=== PATIENT | female | born 1955 | race Caucasian/White ===

== ENCOUNTER → 2021-06-17 10:52 | Outpatient (BNVA) | payer MEDICARE, MEDICAID, SELFPAY | PROVIDERS: PCP Internal Medicine; Visit Provider Hospitalist | DX: Z13.89 Encounter for screening for other disorder (principal) | CPT/HCPCS: Q3014 ==

== ENCOUNTER 2023-01-24 08:57 | Emergency (ER) | payer MEDICARE, MEDICAID, SELFPAY ==
--- NOTE | ~2023-01-24 | XR_ITS ---
EXAMINATION: XR CHEST CLINICAL INFORMATION: Shortness of breath COMPARISON: Previous chest x-ray most recent July 2017 TECHNIQUE: Frontal view of the chest was obtained. FINDINGS: The cardiac and mediastinal contours are stable. There is question of atelectasis or small infiltrate at the right lung base. The lungs are otherwise clear. No pleural effusion or pneumothorax. Degenerative changes of the spine. XR/XR chest 1V IMPRESSION: Question atelectasis or small infiltrate at the right lung base.
[2023-01-24 09:05] VITALS: BP 179/80; PULSE 60; RESP 18; TEMP 36.7; O2SAT 93; BMI 26.6
[2023-01-24 09:07] VITALS: O2SAT 93
--- NOTE | 2023-01-24 09:10 | ECG_ITS ---
Test Reason : sob Blood Pressure : / mmHG Vent. Rate : 072 BPM Atrial Rate : 072 BPM P-R Int : 156 ms QRS Dur : 084 ms QT Int : 430 ms P-R-T Axes : 050 013 050 degrees QTc Int : 470 ms Sinus rhythm with occasional Premature ventricular complexes Minimal voltage criteria for LVH, may be normal variant ( Sokolow-Cifuentes ) Borderline ECG When compared with ECG of 04-AUG-2017 11:09, Premature ventricular complexes are now Present Vent. rate has decreased BY 38 BPM Referred By: Patricia Elder Electronically Signed By:ADRIAN SPICER
[2023-01-24 09:36] LABS: MANUAL DIFF FLAG NO
[2023-01-24 09:39] LABS: Appearance Urine Clear; Color Urine Yellow; Glucose Urine UA Negative (Negative); Leukocyte Esterase Urine Negative (Negative); Nitrite Urine Negative (Negative); Specific Gravity - Urine 1.015 (1.005-1.025); Urine Blood Negative (Negative); Urine Ketones Negative (Negative); Urine Protein Trace mg/dL (Neg-Trace)
[2023-01-24 09:42] LABS: Basophils Absolute Auto 0.1 X10*3/uL (0.0-0.2); Basophils Percent Auto 0.8 % (0-2); Eosinophils Absolute Auto 0.4 X10*3/uL (0.0-0.4); Eosinophils Percent Auto 3.7 % (0-4); Hematocrit 42.3 % (37.0-47.0); Hemoglobin 13.4 g/dl (12.0-16.0); Imm Gran Abs Auto 0.02 X10*3/uL (0.00-0.03); Imm Gran Pct Auto 0.2 % (0.0-0.4); Lymphocytes Percent Auto 9.8 % (20-40); Mean Corpuscular HGB Conc 31.7 g/dl (31.0-35.0); Mean Corpuscular Hemoglobin 29.5 pg (27.0-33.0); Mean Platelet Volume 11.2 fL (9.4-12.3); Monocytes Absolute Auto 0.5 X10*3/uL (0.1-1.2); Monocytes Percent Auto 4.6 % (2-11); Neutrophils Absolute Auto 8.4 x10*3/uL (2.0-8.3); Neutrophils Percent Auto 80.9 % (45-73); Platelet Count 316 X10*3/uL (160-400); Red Blood Count 4.55 X10*6/uL (4.20-5.50); Red Cell Distribution Width 13.5 % (11.0-16.0); White Blood Count 10.3 X10*3/uL (4.8-10.8)
--- NOTE | 2023-01-24 09:45 | ED.URI ---
HPI - URI/Sore Throat General Chief Complaint: Upper Respiratory Symptoms Stated Complaint: diff breathing x 2 days, per ems Source: patient Mode of arrival: EMS Limitations: no limitations History of Present Illness HPI Narrative: Patient is a 67 year old female with a history of COPD presenting with trouble breathing lasting a few days. She states that she has been using 2L of oxygen as needed and it has been giving her some relief. She notes that she will have a COPD exacerbation once a year and this episode feels similar to the past. She notes that she is coughing up small amounts of clear sputum. Denies sick contacts. Denies fever, chills, chest pain, nausea, vomiting, changes in bowel/bladder habits. Related Data Home Medications Medication Instructions Recorded Confirmed flu vacc [id number] 6mos up(PF) 60 ml IM 05/01/20 01/23/22 mcg(15 mcgx4)/0.5 mL IM syringe Previous Rx's Medication Instructions Recorded Ventolin HFA 90 mcg/actuation 2 puff PO Q6H PRN shortness of 12/17/20 aerosol inhaler (albuterol sulfate) breath or wheezing #18 grams fluticasone fur. 200 mcg-umeclid See Rx Instructions .Route 07/07/22 62.5 mcg-vilant 25 mcg .COMPLEX #60 ea inhalat.powder (Trelegy Ellipta) roflumilast 500 mcg tablet 500 mcg PO DAILY #90 tabs 09/21/22 (Daliresp) lorazepam 1 mg tablet 1 mg PO BID #60 tabs 10/13/22 Allergies Allergy/AdvReac Type Severity Reaction Status Date / Time Unable to Assess Allergy Unverified 01/24/23 08:54 Review of Systems Review of Systems: Constitutional : No Weight loss, No Fever, No Chills, No Fatigue, No Malaise ENT/Mouth : No sore throat, No Rhinorrhea Eyes: No Eye Pain, No Swelling, No Redness Cardiovascular : No Chest Pain, + SOB, + Dyspnea on Exertion, No Orthopnea, No Edema, No Palpitations Respiratory : + Cough, + Sputum, No Wheezing Gastrointestinal : No Nausea, No Vomiting, No Diarrhea, No Constipation, No abdominal Pain, No Hematochezia, No Melena Genitourinary : No Dysuria, No Urinary Frequency, No Hematuria, Musculoskeletal : No joint pain, No Myalgias, No Joint Swelling Skin : No Skin Lesions, No rash Neuro : No Weakness, No Numbness, No Dizziness, No Headache Psych : No Anxiety/Panic, No Depression All other systems reviewed and are negative Yes all other systems are reviewed and are negative [facility] Past Medical History Attestation statement: The following information was validated with the patient. Source: old records reviewed and nursing notes reviewed Medical History Chronic cough COPD exacerbation Dyspnea Tobacco dependence URI (upper respiratory infection) Surgical History History of knee surgery Family History Family History Other HTN (hypertension) Social History Social History Alcohol intake: never Patient Tobacco Use Status: Current everyday Tobacco user Tobacco use type: Cigarette Cigarettes Per Day: 10 Years Smoked: 30 years e-Cigarette/Vaping Use: Never Used Advance Directives: No Advance Directives Information Provided: Yes Cognitive needs: No Hearing needs: No Vision needs: Yes Physical Exam Vital Signs: Vital Signs: Last Vital Signs Temp 98.1 F 01/24/23 09:05 Pulse 72 01/24/23 10:12 Resp 16 01/24/23 10:12 BP 163/68 H 01/24/23 10:09 Pulse Ox 90 L 01/24/23 10:09 O2 Del Method Room Air 01/24/23 10:09 BMI result Body Mass Index 26.6 vss Appearance: Alert.? Oriented X3.? No acute distress.? Head: Normocephalic, atraumatic, no step-offs or deformities Eyes: Pupils equal, round and reactive to light.? ENT: Pharynx normal.? Neck: Normal inspection.? Neck supple.? CVS: Normal heart rate and rhythm.? Pulses normal.? Respiratory: No respiratory distress.? Breath sounds diminished breathsounds b/l w/ crackles to lower lobes .? Abdomen: Soft and nontender.? Skin: Skin warm and dry.? Normal skin color.? Normal skin turgor.? Extremities: No lower extremity edema.? No calf ttp. 5/5 strength to bilateral upper and lower extremities Neuro: Oriented X 3.? No motor deficit.? No sensory deficit. CN 2-12 intact Course Reevaluation(s) Reevaluation #1: CBC appears to be around patient's baseline. No acute findings. Chemistry with no acute electrolyte abnormalities requiring intervention, BNP is noted to be higher than patient's baseline 256, x-ray pending, will see if x-ray is consistent with CHF. No CP unlikely ACS, unlikely PE. More likely bronchitis or URI or chronic lung disease. Time: 10:05 Reevaluation #2: Chest xray w/ atelectasis or small infiltrate at the right lung base. No signs of chf. patient 92-94% on RA and has PRN O2 at home. History and physical exam with low suspicion for PE I do not suspect PE. Patient will be discharged home with antibiotics, steroids and inhaler Educated patient on diagnosis and treatment plan, answered all question, patient verbalizes understanding. At this time patient will be discharged home, advised to return with new or worsening symptoms. Educated on worrisome signs and symptoms and when to return. At this time I feel comfortable discharge home. Time: 13:43 Reevaluation #3: To note, I did have this patient evaluated by the hospitalist, hospitalist do not feels though patient warrants inpatient admission. Patient feels comfortable going home. She does have p.r.n. oxygen at home. Will discharge her home with steroids. Medications Administered Generic Name Dose Route Start Last Admin Trade Name Freq PRN Reason Stop Dose Admin Magnesium Sulfate 2 gm in 50 mls @ 25 mls/hr 01/24/23 12:56 01/24/23 13:38 Magnesium Sulfate/H2o IV 01/24/23 14:55 25 mls/hr ONCE ONE Administration Discontinued Medications Generic Name Dose Route Start Last Admin Trade Name Freq PRN Reason Stop Dose Admin Albuterol Sulfate 5 mg 01/24/23 09:52 01/24/23 10:11 Albuterol Sulfate (0.083%) 2.5 Mg/3 Ml Vial.Neb INHALE 01/24/23 09:53 5 mg ONCE ONE Administration Albuterol Sulfate 5 mg 01/24/23 12:56 01/24/23 13:13 Albuterol Sulfate 2.5 Mg/0.5 Ml Vial.Neb INHALE 01/24/23 12:57 5 mg ONCE ONE Administration Lorazepam 0.5 mg 01/24/23 12:56 01/24/23 13:38 Lorazepam 2 Mg/Ml Vial IVPUSH 01/24/23 12:57 0.5 mg ONCE ONE Administration Methylprednisolone Sodium Succinate 125 mg 01/24/23 12:56 01/24/23 13:38 Methylprednisolone Sod Succ 125 Mg/2 Ml Vial IVPUSH 01/24/23 12:57 125 mg ONCE ONE Administration Medical Decision Making Medical Decision Making [facility] Narrative: 0946 67 year old female presents w/ cough w/ clear sputum and SOB X 2 days PE w/ diminished breathsounds b/l w/ crackles to lower lobes Concerns for chronic lung disease versus acute respiratory infection versus COVID-19. Unlikely PE, pneumonia, ACS. Less likely CHF however will rule out No signs of acute respiratory distress. Plan labs, imaging Differential Diagnosis Differential Diagnoses: The differential diagnosis associated with the presentation includes Concerns for chronic lung disease versus acute respiratory infection versus COVID-19. Unlikely PE, pneumonia, ACS. Less likely CHF however will rule out No signs of acute respiratory distress. Admission/Observation Consideration of admission/observation: Escalation of care including admission/observation considered possible Lab Data [facility] Lab Attestation statement: I reviewed the patient's lab results. 01/24/23 09:29 01/24/23 09:29 Labs: Lab Results 01/24/23 01/24/23 01/24/23 Range/Units 09:29 09:29 09:29 WBC 10.3 (4.8-10.8) X10*3/uL RBC 4.55 (4.20-5.50) X10*6/uL Hgb 13.4 (12.0-16.0) g/dl Hct 42.3 (37.0-47.0) % MCV 93.0 (80.0-98.0) fL MCH 29.5 (27.0-33.0) pg MCHC 31.7 (31.0-35.0) g/dl RDW 13.5 (11.0-16.0) % Plt Count 316 (160-400) X10*3/uL MPV 11.2 (9.4-12.3) fL Immature Gran % (Auto) 0.2 (0.0-0.4) % Neut % (Auto) 80.9 H (45-73) % Lymph % (Auto) 9.8 L (20-40) % Sargent % (Auto) 4.6 (2-11) % Eos % (Auto) 3.7 (0-4) % Baso % (Auto) 0.8 (0-2) % Lymph # (Auto) 1.0 L (1.2-4.9) X10*3/uL Sargent # (Auto) 0.5 (0.1-1.2) X10*3/uL Eos # (Auto) 0.4 (0.0-0.4) X10*3/uL Baso # (Auto) 0.1 (0.0-0.2) X10*3/uL Abs Immat Gran (auto) 0.02 (0.00-0.03) X10*3/uL Absolute Neuts (auto) 8.4 H (2.0-8.3) x10*3/uL Absolute Nucleated RBC 0.000 (0.0-0.012) X10*3/uL Nucleated RBC % (auto) 0.0 (0.0-0.2) /100WBC Sodium 140 (135-145) mmol/L Potassium 3.9 (3.3-5.1) mmol/L Chloride 102 (96-108) mmol/L Carbon Dioxide 28 (22-29) mmol/L Anion Gap 14 (12-20) BUN 17 H (9-16) mg/dL Creatinine 0.87 (0.5-1.4) mg/dL Estim Creat Clear Calc 58.8 Estimated GFR > 60 Random Glucose 105 (60-115) mg/dL Calcium 10.0 (8.4-10.2) mg/dL Magnesium 2.0 (1.6-2.6) mg/dL Total Bilirubin 0.6 (0.0-1.0) mg/dL AST 15 (5-31) U/L ALT 10 (0-31) U/L Alkaline Phosphatase 77 (39-117) U/L Troponin I High Sens 2.9 (<3.5-17.0) ng/L B-Natriuretic Peptide (<100) pg/mL Total Protein 7.6 (6.5-8.0) g/dL Albumin 4.1 (3.5-5.0) g/dL Urine Color Urine Appearance Urine pH (5.0-9.0) Ur Specific [place] (1.005-1.025) Urine Protein (Neg-Trace) mg/dL Urine Glucose (UA) (Negative) mg/dL Urine Ketones (Negative) mg/dL Urine Blood (Negative) Urine Nitrite (Negative) Ur Leukocyte Esterase (Negative) COVID-19 (CARLOS) (Negative) COVID-19 Clin Com 01/24/23 01/24/23 01/24/23 Range/Units 09:29 09:29 09:29 WBC (4.8-10.8) X10*3/uL RBC (4.20-5.50) X10*6/uL Hgb (12.0-16.0) g/dl Hct (37.0-47.0) % MCV (80.0-98.0) fL MCH (27.0-33.0) pg MCHC (31.0-35.0) g/dl RDW (11.0-16.0) % Plt Count (160-400) X10*3/uL MPV (9.4-12.3) fL Immature Gran % (Auto) (0.0-0.4) % Neut % (Auto) (45-73) % Lymph % (Auto) (20-40) % Sargent % (Auto) (2-11) % Eos % (Auto) (0-4) % Baso % (Auto) (0-2) % Lymph # (Auto) (1.2-4.9) X10*3/uL Sargent # (Auto) (0.1-1.2) X10*3/uL Eos # (Auto) (0.0-0.4) X10*3/uL Baso # (Auto) (0.0-0.2) X10*3/uL Abs Immat Gran (auto) (0.00-0.03) X10*3/uL Absolute Neuts (auto) (2.0-8.3) x10*3/uL Absolute Nucleated RBC (0.0-0.012) X10*3/uL Nucleated RBC % (auto) (0.0-0.2) /100WBC Sodium (135-145) mmol/L Potassium (3.3-5.1) mmol/L Chloride (96-108) mmol/L Carbon Dioxide (22-29) mmol/L Anion Gap (12-20) BUN (9-16) mg/dL Creatinine (0.5-1.4) mg/dL Estim Creat Clear Calc Estimated GFR Random Glucose (60-115) mg/dL Calcium (8.4-10.2) mg/dL Magnesium (1.6-2.6) mg/dL Total Bilirubin (0.0-1.0) mg/dL AST (5-31) U/L ALT (0-31) U/L Alkaline Phosphatase (39-117) U/L Troponin I High Sens (<3.5-17.0) ng/L B-Natriuretic Peptide 256 H (<100) pg/mL Total Protein (6.5-8.0) g/dL Albumin (3.5-5.0) g/dL Urine Color Yellow Urine Appearance Clear Urine pH 8.0 (5.0-9.0) Ur Specific [place] 1.015 (1.005-1.025) Urine Protein Trace (Neg-Trace) mg/dL Urine Glucose (UA) Negative (Negative) mg/dL Urine Ketones Negative (Negative) mg/dL Urine Blood Negative (Negative) Urine Nitrite Negative (Negative) Ur Leukocyte Esterase Negative (Negative) COVID-19 (CARLOS) Negative (Negative) COVID-19 Clin Com See Note Independent Interpretation I performed an independent interpretation of an: EKG and Plain X-Ray Radiology Impression Discussion of test interpretation with radiology: I have reviewed the radiologist's reading. Critical Care Time Critical Care Time Critical Care Time: No Discharge Plan Discharge Clinical Impression: COPD exacerbation, Elevated brain natriuretic peptide (BNP) level Patient Disposition: Home, Self-Care Instructions: COPD (Chronic Obstructive Pulmonary Disease) (DC) Additional Instructions: Take your medications as prescribed. If you were prescribed antibiotics today, it is important that you take your medication to their entirety, do not skip any doses, do not finish them early. Follow-up with your primary care provider this week. Return to the emergency department with new or worsening symptoms. Such as fevers, chills, chest pain, shortness of breath, nausea, vomiting, dizziness, headache, vision changes, lethargy In case of emergency call 911 Follow up with your PCP It would be a good idea to get a repeat BNP, and out patient echo if possible. XR/XR chest 1V IMPRESSION: Question atelectasis or small infiltrate at the right lung base. Prescriptions: No Action albuterol sulfate [Ventolin HFA] 90 mcg/actuation HFA aerosol inhaler 2 puff PO Q6H PRN (Reason: shortness of breath or wheezing) Qty: 18 11RF Trelegy Ellipta 200-62.5-25 mcg blister with device See Rx Instructions .ROUTE .COMPLEX Qty: 60 12RF Dose Instruction: INHALE 1 PUFF BY MOUTH EVERY DAY Rx Instructions: INHALE 1 PUFF BY MOUTH EVERY DAY Daliresp 500 mcg tablet 500 mcg PO DAILY Qty: 90 3RF lorazepam 1 mg tablet 1 mg PO BID Qty: 60 5RF Fluzone Quad [id number] (PF) 60 mcg (15 mcg x 4)/0.5 mL syringe IM Referrals: Tony Correa MD [Primary Care Provider] - 2 days Stand Alone Forms: Work/School Release
--- OUTSIDE RECORDS SUMMARY | 2023-01-24 09:46 | XMS_ITS | Continuity of Care Document ---
Author Name Unknown Organization [facility] ter Address [address] [place] [id number]- Care Team Providers Care Therapeutic Specialist Name Role Phone Feliz GROSSMAN, Abhilash Primary Care Physician [phone] Encounter [facility] [place] Date(s): 05/23/19 - 08/31/[address] [address]- [place] Attending Physician: Carlos Buckner MD Referring Physician: Carlos Buckner MD Allergies, Adverse Reactions, Alerts Substance Reaction Severity Status NKA Active Medications air chamber air chamber, with albuterol, By Mouth, Every 6 hours, PRN sob /wheeze, # 1 applicator, Refills 0, Tot. Refills 0, Maintenance, 03/09/11 14:29:04 Start Date: 03/09/11 Status: Ordered Ativan 0.5 mg oral tablet See Instructions, 2mg twice daily, 0 Refills, Maintenance, 12/04/10 12:04:53, Tablet Start Date: 12/04/10 Status: Ordered Celexa 20 mg oral tablet 1 tablet, By Mouth, Daily, # 30 tablet, 0 Refills, Maintenance, Tablet Start Date: 12/04/10 Status: Ordered Combivent 103 mcg-18 mcg/inh inhalation aerosol with adapter 2 puffs, Inhalation, 4 times a day, # 14 Gm, 0 Refills, Maintenance, Aerosol Start Date: 03/09/11 Stop Date: 03/23/11 Status: Ordered famotidine 20 mg oral tablet 1 tablet = 20 mg, By Mouth, 2 times a day, # 28 tablet, 0 Refills, Maintenance, Tablet Start Date: 03/09/11 Stop Date: 03/23/11 Status: Ordered Flovent HFA 220 mcg/inh inhalation aerosol with adapter 1 puffs, Inhalation, 2 times a day, # 12 Gm, 0 Refills, Maintenance, Aerosol Start Date: 03/09/11 Stop Date: 03/23/11 Status: Ordered hydrochlorothiazide 12.5 mg oral capsule 1 capsule = 12.5 mg, By Mouth, Daily, # 30 capsule, 3 Refills, Maintenance, Capsule Start Date: 01/29/11 Status: Ordered lisinopril 40 mg oral tablet 1 tablet = 40 mg, By Mouth, Daily, # 30 tablet, 3 Refills, Maintenance Start Date: 01/29/11 Status: Ordered Social History Social History Type Response Smoking Status Current every day navdeep hamlin entered on: 04/15/15 Sex
--- OUTSIDE RECORDS SUMMARY | 2023-01-24 09:46 | XMS_ITS | Continuity of Care Document ---
Author Name Unknown Organization [facility] ter Address [address] [place] [address]- Care Team Providers Care Tire Mold Tester Name Role Phone Feliz GROSSMAN, Abhilash Primary Care Physician Encounter [facility] [place] Date(s): 06/27/19 - 09/07/[address] [address]- [place] Attending Physician: Carlos Buckner MD Admitting Physician: Carlos Buckner MD Referring Physician: Carlos [...]
--- OUTSIDE RECORDS SUMMARY | 2023-01-24 09:46 | XMS_ITS | Continuity of Care Document ---
Author Name Unknown Organization [facility] ter Address [address] [place] [id number]- Care Team Providers Care Rn Sane Name Role Phone Not on Staff, PCP Primary Care Physician Unavail able [place] [facility] [place] - 01/20/[address] [address]- Discharge Disposition: A-D/C AMA Attending Physician: Socrates Osman MD Admitting Physician: Socrates Osman MD Referring Physician: Not on Staff, Referring MD Allergies, Adverse Reactions, Alerts No Known Allergies Medications air chamber air chamber, with albuterol, [...] day navdeep hamlin entered on: 04/15/15 Sex Patient Care team information Care Team Personnel Name: Not on Staff, PCP Position: [facility] Physician (General Medicine) Member Role: PCP Name: Eliza Darnell RN Position: [facility] ED RN W/OE and Tasks Member Role: Patient Care Provider Name: Sarah Evans MD Position: [facility] Resident Member Role: ED Resident Address: Address: [address] [place] [address] [place] [address]- Care Team Related Persons Name: JLUIS VALVERDE Address: home [address] [place] [address] Name: TOMAS VALVERDE
--- OUTSIDE RECORDS SUMMARY | 2023-01-24 09:46 | XMS_ITS | Continuity of Care Document ---
Author Name Unknown Organization [facility] ter Address [address] [place] [id number]- Care Team Providers Care Associate Director Career Services Name Role Phone Feliz GROSSMAN, Abhilash Primary Care Physician [phone] Encounter [facility] [place] Date(s): 06/22/19 - 07/28/[address] [address]- [place] Attending Physician: Carlos Buckner MD Admitting [...]
--- OUTSIDE RECORDS SUMMARY | 2023-01-24 09:46 | XMS_ITS | Continuity of Care Document ---
Author Name Unknown Organization [facility] ter Address [address] [place] [address]- Care Team Providers Care Property Developer Name Role Phone Feliz GROSSMAN, Abhilash Primary Care Physician [phone] Encounter [facility] [place] Date(s): 06/21/19 - 07/27/[address] [address]- [place] Attending Physician: Omaira Chaves MD Admitting Physician: Omaira Chaves MD Referring Physician: Carlos Buckner MD Allergies, [...]
[2023-01-24 09:48] LABS: COVID-19 Test Negative (Negative); IDNOW Serial# 08D9AD1C
[2023-01-24 09:53] LABS: Alanine Aminotransferase 10 U/L (0-31); Albumin Level 4.1 g/dL (3.5-5.0); Alkaline Phosphatase 77 U/L (39-117); Anion Gap 14 (12-20); Aspartate Amino Transferase 15 U/L (5-31); Bilirubin Total 0.6 mg/dL (0.0-1.0); Blood Urea Nitrogen 17 mg/dL (9-16); Carbon Dioxide 28 mmol/L (22-29); Chloride 102 mmol/L (96-108); Creatinine Clr Calc Pharmacy 58.8; Estimated Glomerular Filt Rate > 60; Glucose Random 105 mg/dL (60-115); Potassium 3.9 mmol/L (3.3-5.1); Sodium 140 mmol/L (135-145); Total Protein 7.6 g/dL (6.5-8.0)
[2023-01-24 09:59] LABS: B Type Natriuretic Peptide 256 pg/mL (<100)
[2023-01-24 10:01] LABS: Troponin-I High Sensitivity 2.9 ng/L (<3.5-17.0)
[2023-01-24 10:09] VITALS: BP 163/68; PULSE 59; RESP 20; O2SAT 90
[2023-01-24] MEDS: Albuterol Sulfate (0.083%) 2.5 MG/3 ML VIAL.NEB 5 MG INHALE (10:11)
[2023-01-24 10:12] VITALS: PULSE 72; RESP 16; O2SAT 93
[2023-01-24] MEDS: Albuterol Sulfate 2.5 MG/0.5 ML VIAL.NEB 5 MG INHALE (13:13)
[2023-01-24] MEDS: methylPREDNISolone Sod Succ 125 MG/2 ML VIAL IVPUSH (13:38)
[2023-01-24] MEDS: LORazepam 2 MG/ML VIAL 0.5 MG IVPUSH (13:38)
[2023-01-24] MEDS: Magnesium Sulfate/H2O 2 GM/50 ML PIGGYBACK IV (13:38)
== END 2023-01-24 14:32 | disposition home or self-care (01) ==
PROVIDERS: Physician Assistant; Emergency Provider Emergency Medicine; PCP Internal Medicine
DX: J44.1 Chronic obstructive pulmonary disease with (acute) exacerbation (principal); R06.02 Shortness of breath; R05.9 Cough, unspecified; R94.31 Abnormal electrocardiogram [ECG] [EKG]; F17.210 Nicotine dependence, cigarettes, uncomplicated; Z20.822 Contact with and (suspected) exposure to COVID-19; Z99.81 Dependence on supplemental oxygen; Z20.828 Contact with and (suspected) exposure to other viral communicable diseases; Z79.899 Other long term (current) drug therapy; Z71.6 Tobacco abuse counseling
CPT/HCPCS: 71045; 80053; 81003; 83735; 83880; 84484; 85025; 87635; 93005; 94640; 96365; 96375; 99285; J2060; J2930; J3475

== ENCOUNTER 2023-06-28 13:07 | Inpatient (IN) | payer MEDICARE, MEDICAID, SELFPAY ==
[2023-06-28] VITALS (8 sets, daily range): BP systolic 117–140; BP diastolic 63–96; PULSE 79–92; RESP 18–22; TEMP 36.5–36.6; O2SAT 88–96; BMI 24.6
--- NOTE | ~2023-06-28 | XR_ITS ---
EXAMINATION: XR CHEST CLINICAL INFORMATION: SOB and COPD. COMPARISON: Chest x-ray 01/24/2023 TECHNIQUE: Frontal view of the chest was obtained. FINDINGS: The lungs are well-expanded with patchy atelectasis or infiltrate right lower lobe. Rest of lungs are clear. There is mild blunting of right CP angle question pleural thickening. Heart size enlarged. Pulmonary vascularity is normal. No gross bony or abnormality seen. XR/XR chest 1V IMPRESSION: 1. Right lower lobe patchy atelectasis or infiltrate. 2. Mild blunting of right CP angle question pleural thickening. Right lower lobe patchy infiltrate/atelectasis.
--- NOTE | 2023-06-28 13:56 | ECG_ITS ---
Test Reason : DYSPNEA Blood Pressure : / mmHG Vent. Rate : 081 BPM Atrial Rate : 081 BPM P-R Int : 140 ms QRS Dur : 084 ms QT Int : 458 ms P-R-T Axes : 056 004 090 degrees QTc Int : 532 ms Normal sinus rhythm Minimal voltage criteria for LVH, may be normal variant ( [place] product ) Anterior infarct , age undetermined T wave abnormality, consider lateral ischemia Prolonged QT Abnormal ECG Referred By: Suze Dahl Electronically Signed By:RADHA CAR
--- NOTE | 2023-06-28 14:03 | ED.SOB ---
HPI - SOB/Dyspnea General Chief Complaint: Dyspnea Stated Complaint: INCR SOB X'S DAYS,NO REL W/HOME TX PER EMS Time Seen by Provider: 06/28/23 13:36 Source: patient Mode of arrival: EMS Limitations: no limitations History of Present Illness HPI Narrative: Patient comes to the emergency room complaining of shortness of breath. According to the patient, patient has been coughing more than usual, with increased sputum production. Patient uses oxygen at 2 L at home. According to the patient, she was using her neb today and was not working, patient continues having shortness of breath therefore called 911. Patient denies any fever or chills, no nausea vomiting or diarrhea. Patient denies any lower extremity swelling. Patient states that she has history of COPD, patient states that once she was told that she had ?markers for CHF but she has never been worked up for diagnosed with CHF. Related Data Home Medications Medication Instructions Recorded Confirmed flu vacc [id number] 6mos up(PF) 60 ml IM 05/01/20 01/23/22 mcg(15 mcgx4)/0.5 mL IM syringe Previous Rx's Medication Instructions Recorded Ventolin HFA 90 mcg/actuation 2 puff PO Q6H PRN shortness of 12/17/20 aerosol inhaler (albuterol sulfate) breath or wheezing #18 grams fluticasone fur. 200 mcg-umeclid See Rx Instructions .Route 07/07/22 62.5 mcg-vilant 25 mcg .COMPLEX #60 ea inhalat.powder (Trelegy Ellipta) roflumilast 500 mcg tablet 500 mcg PO DAILY #90 tabs 09/21/22 (Daliresp) lorazepam 1 mg tablet 1 mg PO BID #60 tabs 10/13/22 Allergies Allergy/AdvReac Type Severity Reaction Status Date / Time No Known Allergies Allergy Verified 06/28/23 14:38 Review of Systems Review of Systems: Constitutional : No Weight loss, No Fever, No Chills, No Night Sweats, No Fatigue, No Malaise ENT/Mouth : No Hearing loss, No Ear Pain, No Nasal Congestion, No Sinus Pain, No Hoarseness, No sore throat, No Rhinorrhea, No Swallowing Difficulty Eyes: No Eye Pain, No Swelling, No Redness, No Foreign Body, No Discharge, No Vision Changes Cardiovascular : No Chest Pain, No SOB, No Dyspnea on Exertion, No Orthopnea, No Edema, No Palpitations Respiratory : Complaining of cough, sputum production, wheezing, shortness of breath Gastrointestinal : No Nausea, No Vomiting, No Diarrhea, No Constipation, No abdominal Pain, No Hematochezia, No Melena Genitourinary : no irregular bleeding, No Dysuria, No Urinary Frequency, No Hematuria, No Urinary Incontinence, No Urgency, No Flank Pain, No Urinary Flow Changes, No Hesitancy Musculoskeletal : No joint pain, No Myalgias, No Joint Swelling Skin : No Skin Lesions, No rash Neuro : No Weakness, No Numbness, No Paresthesias, No Loss of Consciousness, No Dizziness, No Headache Psych : No Anxiety/Panic, No Depression, No SI/HI/AH/VH, No Social Issues, Heme/Lymph: No Bruising, No Bleeding,No Lymphadenopathy Endocrine : No Polyuria, No Polydipsia, No Temperature Intolerance PMFSH Past Medical History Medical History Dyspnea Chronic cough Tobacco dependence URI (upper respiratory infection) COPD exacerbation Surgical History History of knee surgery Family History Family History Other HTN (hypertension) Social History Social History Alcohol intake: never Patient Tobacco Use Status: Current everyday Tobacco user Tobacco use type: Cigarette Cigarettes Per Day: 10 Years Smoked: 30 years e-Cigarette/Vaping Use: Never Used Advance Directives: No Advance Directives Information Provided: No Cognitive needs: No Hearing needs: No Vision needs: Yes Physical Exam Vital Signs: Vital Signs: Last Vital Signs Temp 98 F 06/28/23 16:00 Pulse 89 06/28/23 16:00 Resp 18 06/28/23 16:00 BP 131/76 06/28/23 16:00 Pulse Ox 92 06/28/23 16:00 O2 Del Method Room Air 06/28/23 16:00 O2 Flow Rate 2 06/28/23 16:00 Oxygen Flow Rate 2 06/28/23 13:43 BMI result Body Mass Index 24.6 Const: Other: Appearance: Alert. Oriented X3. No acute distress. Eyes: Pupils equal, round and reactive to light. ENT: Pharynx normal. Neck: Normal inspection. Neck supple. No lymph nodes noted. No crepitus CVS: Normal heart rate and rhythm. Pulses normal. Normal S1 and S2 Respiratory: No respiratory distress. On 4 L of oxygen saturating 98%. O2 was decreased to her usual 2 L, still saturating in the mid 90s. Wheezing, occasional crackles, decreased breath sounds bilaterally Abdomen: Soft and nontender. No rigidity. No distention. Skin: Skin warm and dry. Normal skin color. Normal skin turgor. Extremities: No lower extremity edema. No Lacerations. No Rash Neuro: Oriented X 3. No motor deficit. No sensory deficit. Moving all extremities. No slurred speech. CN 2 through 12 grossly intact Psych: calm, cooperative, normal affect Course Course Course Narrative: -patient's vitals stable, no hypotension, no tachycardic no fever, sepsis not suspected -all of patient's labs pending -patient receiving Solu-Medrol, nebulization treatments, magnesium Medications Administered Discontinued Medications Generic Name Dose Route Start Last Admin Trade Name Freq PRN Reason Stop Dose Admin Albuterol Sulfate 5 mg/ 0 mg 06/28/23 14:19 06/28/23 14:27 Albuterol/Ipratropium 3 ml INHALE 06/28/23 14:20 7.5 each ONCE ONE Administration Furosemide 40 mg 06/28/23 15:16 06/28/23 15:52 Furosemide 40 Mg/4 Ml Vial IVPUSH 06/28/23 15:17 40 mg STAT STA Administration Protocol Magnesium Sulfate 2 gm in 50 mls @ 25 mls/hr 06/28/23 14:02 06/28/23 15:51 Magnesium Sulfate/H2o IV 06/28/23 16:01 Infused ONCE ONE Infusion Methylprednisolone Sodium Succinate 125 mg 06/28/23 14:02 06/28/23 14:43 Methylprednisolone Sod Succ 125 Mg/2 Ml Vial IVPUSH 06/28/23 14:03 125 mg ONCE ONE Administration Medical Decision Making Medical Decision Making [facility] Narrative: My interpretation of labs, normal white blood cell count, slightly anemic, pCO2 normal 45, no significant electrolyte abnormalities, LFTs elevated, no abdominal pain. BNP significantly elevated 2149, patient likely has new onset CHF, serology negative for COVID and influenza -when comparing patient's EKG from today to previous EKG from January 2023, there are new T-wave inversions. Patient has a troponin of 35.3, elevated from previous troponin levels. However, today the BNP is significantly increased as well. Patient has no chest pain. -2nd troponin pending for 16:30 -my interpretation of chest x-ray: Pulmonary congestion, likely CHF -patient was given a breathing treatment on arrival, patient has no diagnosis of CHF. -patient given IV Lasix 40 mg -ambulation trial pending -at this time, 15:54, patient's chest x-ray became available. Since the patient has right lower lobe infiltrate, IV antibiotics have been started. -patient has a combination of CHF and pneumonia. Patient's oxygen saturation 94% on 2 L nasal cannula, normal blood pressure, no tachycardic, no fever, sepsis not suspected. Patient's oxygen saturation with mild exertion dropped to 90s feel on 2 L. Patient not oxygen dependent. Discussed the above-mentioned with the patient, patient agrees to be admitted to the hospital -I discussed the patient with Dr. Cintron, patient being admitted to the medicine team Differential Diagnosis Differential Diagnoses: The differential diagnosis associated with the presentation includes (Asthma, chronic lung disease, CHF) Admission/Observation Consideration of admission/observation: Escalation of care including admission/observation considered Consult Healthcare Provider Management of the patient was discussed with: Hospitalist Lab Data MDM Lab Attestation statement: I reviewed the patient's lab results. 06/28/23 14:27 06/28/23 14:27 Labs: Lab Results 06/28/23 06/28/23 06/28/23 Range/Units 14:24 14:27 14:32 WBC 9.6 (4.8-10.8) X10*3/uL RBC 3.98 L (4.20-5.50) X10*6/uL Hgb 11.8 L (12.0-16.0) g/dl Hct 36.7 L (37.0-47.0) % MCV 92.2 (80.0-98.0) fL MCH 29.6 (27.0-33.0) pg MCHC 32.2 (31.0-35.0) g/dl RDW 14.1 (11.0-16.0) % Plt Count 319 (160-400) X10*3/uL MPV 10.8 (9.4-12.3) fL Immature Gran % (Auto) 0.3 (0.0-0.4) % Neut % (Auto) 79.4 H (45-73) % Lymph % (Auto) 10.3 L (20-40) % [place] % (Auto) 8.3 (2-11) % Eos % (Auto) 1.3 (0-4) % Baso % (Auto) 0.4 (0-2) % Lymph # (Auto) 1.0 L (1.2-4.9) X10*3/uL [place] # (Auto) 0.8 (0.1-1.2) X10*3/uL Eos # (Auto) 0.1 (0.0-0.4) X10*3/uL Baso # (Auto) 0.0 (0.0-0.2) X10*3/uL Abs Immat Gran (auto) 0.03 (0.00-0.03) X10*3/uL Absolute Neuts (auto) 7.6 (2.0-8.3) x10*3/uL Absolute Nucleated RBC 0.000 (0.0-0.012) X10*3/uL Nucleated RBC % (auto) 0.0 (0.0-0.2) /100WBC PT 13.1 (11.1-13.3) SEC INR 1.1 (0.9-1.1) VBG pH 7.48 H (7.32-7.43) VBG pCO2 45 mmHg VBG pO2 41 mmHg VBG HCO3 34 H (22-26) mmol/L VBG O2 Saturation 70.0 % VBG Base Excess 10.2 mmol/L Sodium 137 (135-145) mmol/L Potassium 4.6 (3.3-5.1) mmol/L Chloride 100 (96-108) mmol/L Carbon Dioxide 32 H (22-29) mmol/L Anion Gap 10 L (12-20) BUN 17 H (9-16) mg/dL Creatinine 0.79 (0.5-1.4) mg/dL Estim Creat Clear Calc 62.6 Estimated GFR > 60 Random Glucose 107 (60-115) mg/dL Lactic Acid 1.0 (0.5-2.0) mmol/L Calcium 8.7 D (8.4-10.2) mg/dL Total Bilirubin 0.5 (0.0-1.0) mg/dL Direct Bilirubin 0.2 (0.0-0.5) mg/dL AST 98 H (5-31) U/L ALT 95 H (0-31) U/L Alkaline Phosphatase 229 H (39-117) U/L Troponin I High Sens 35.3 H D (<3.5-17.0) ng/L B-Natriuretic Peptide 2149 H (<100) pg/mL Total Protein 6.5 (6.5-8.0) g/dL Albumin 3.4 L (3.5-5.0) g/dL COVID-19 (CARLOS) Negative (Negative) COVID-19 Clin Com See Note Influenza Type A (KRISTINA) Negative (Negative) Influenza Type B (KRISTINA) Negative (Negative) Influenza A & B Note See Note Independent Interpretation I performed an independent interpretation of an: EKG (My interpretation of EKG, normal sinus rhythm, heart rate 81, no ST segment depression or elevation, prolonged QT 532) and Plain X-Ray Radiology Impression Discussion of test interpretation with radiology: I have reviewed the radiologist's reading. Critical Care Time Critical Care Time Critical Care Time: Yes Total Critical Care Time: 75 Attestation: I have personally provided critical care time. Time includes review of lab data, radiology results, discussion with consultants, and monitoring for potential decompensation. Intervention performed as documented. Discharge Plan Discharge Clinical Impression: New onset of congestive heart failure, Pneumonia, Acute electrocardiogram changes Patient Disposition: Admitted As Inpatient Prescriptions: No Action albuterol sulfate [Ventolin HFA] 90 mcg/actuation HFA aerosol inhaler 2 puff PO Q6H PRN (Reason: shortness of breath or wheezing) Qty: 18 11RF Trelegy Ellipta 200-62.5-25 mcg blister with device See Rx Instructions .ROUTE .COMPLEX Qty: 60 12RF Dose Instruction: INHALE 1 PUFF BY MOUTH EVERY DAY Rx Instructions: INHALE 1 PUFF BY MOUTH EVERY DAY Daliresp 500 mcg tablet 500 mcg PO DAILY Qty: 90 3RF lorazepam 1 mg tablet 1 mg PO BID Qty: 60 5RF Fluzone Quad [id number] (PF) 60 mcg (15 mcg x 4)/0.5 mL syringe IM
[2023-06-28] MEDS: Albuterol Sulfate 5 MG, Albuterol/Iprat 2.5/0.5MG 3 ML 3 ML INHALE (14:27)
[2023-06-28 14:35] LABS: MANUAL DIFF FLAG NO
[2023-06-28 14:37] LABS: Basophils Percent Auto 0.4 % (0-2); Eosinophils Absolute Auto 0.1 X10*3/uL (0.0-0.4); Eosinophils Percent Auto 1.3 % (0-4); Hematocrit 36.7 % (37.0-47.0); Hemoglobin 11.8 g/dl (12.0-16.0); Imm Gran Abs Auto 0.03 X10*3/uL (0.00-0.03); Imm Gran Pct Auto 0.3 % (0.0-0.4); Lymphocytes Percent Auto 10.3 % (20-40); Mean Corpuscular HGB Conc 32.2 g/dl (31.0-35.0); Mean Corpuscular Hemoglobin 29.6 pg (27.0-33.0); Mean Corpuscular Volume 92.2 fL (80.0-98.0); Mean Platelet Volume 10.8 fL (9.4-12.3); Monocytes Absolute Auto 0.8 X10*3/uL (0.1-1.2); Monocytes Percent Auto 8.3 % (2-11); Neutrophils Absolute Auto 7.6 x10*3/uL (2.0-8.3); Neutrophils Percent Auto 79.4 % (45-73); Platelet Count 319 X10*3/uL (160-400); Red Blood Count 3.98 X10*6/uL (4.20-5.50); Red Cell Distribution Width 14.1 % (11.0-16.0); White Blood Count 9.6 X10*3/uL (4.8-10.8)
[2023-06-28 14:38] LABS: VBG Base Excess 10.2 mmol/L; VBG HCO3 34 mmol/L (22-26); VBG pCO2 45 mmHg; VBG pH 7.48 (7.32-7.43); VBG pO2 41 mmHg
[2023-06-28 14:42] LABS: Venous Blood Gas Refer to POC result
[2023-06-28 14:43] LABS: INTERNATIONAL NORM RATIO 1.1 (0.9-1.1); Prothrombin Time 13.1 SEC (11.1-13.3)
[2023-06-28] MEDS: Magnesium Sulfate/H2O 2 GM/50 ML PIGGYBACK IV (14:43)
[2023-06-28] MEDS: methylPREDNISolone Sod Succ 125 MG/2 ML VIAL IVPUSH (14:43)
[2023-06-28 14:57] LABS: Alanine Aminotransferase 95 U/L (0-31); Albumin Level 3.4 g/dL (3.5-5.0); Alkaline Phosphatase 229 U/L (39-117); Anion Gap 10 (12-20); Aspartate Amino Transferase 98 U/L (5-31); Bilirubin Direct 0.2 mg/dL (0.0-0.5); Bilirubin Total 0.5 mg/dL (0.0-1.0); Blood Urea Nitrogen 17 mg/dL (9-16); Calcium 8.7 mg/dL (8.4-10.2); Carbon Dioxide 32 mmol/L (22-29); Chloride 100 mmol/L (96-108); Creatinine Clr Calc Pharmacy 62.6; Estimated Glomerular Filt Rate > 60; Glucose Random 107 mg/dL (60-115); Potassium 4.6 mmol/L (3.3-5.1); Sodium 137 mmol/L (135-145); Total Protein 6.5 g/dL (6.5-8.0)
[2023-06-28 15:02] LABS: B Type Natriuretic Peptide 2149 pg/mL (<100)
[2023-06-28 15:05] LABS: Troponin-I High Sensitivity 35.3 ng/L (<3.5-17.0)
[2023-06-28 15:11] LABS: COVID-19 Test Negative (Negative); IDNOW Serial# 08D9AD1C; IDNOW Serial# 152EDE1D; Influenza A Negative (Negative); Influenza B2 Negative (Negative)
[2023-06-28] MEDS: Furosemide 40 MG/4 ML VIAL IVPUSH (15:52)
--- NOTE | 2023-06-28 16:42 | P.HPHOSP_ITS ---
History of Present Illness Date of Service: 06/28/23 Attending physician on admission: Jovany Cintron Chief Complaint: salvador, cough 67 year old female with history of RADHA noncompliant with cpap, COPD who is a current 1/2-1ppd cigarette smoker with nocturnal hypoxia presented to the ED earliert today for evaluation of shortness of breath. She states she has had progressively worsening SALVADOR. She wears 2L supplemental O2 at nighttime but has been wearing it during the day due to her dyspnea. She has also been using albuterol inhaler with increased frequency. Reports productive cough with clear sputum x3 days. Had a sick contact with known URI. No fevers, chills, ST, congestion, abd pain, n/v/d, urinary symptoms, lightheadedness, palpitations, chest pain. Continues smoking 1/2-1 pack cigarettes daily. No etoh use. No illicit drug use. 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 On arrival, oximetry 90% on 2L supplemental O2, vitals otherwise stable. No leukocytosis. Renal function normal. Lytes normal except CO2 32. VBG with ph 7.48, co2 45, hco3 34. AST 98, ALT 95. Initial trop 35.3, BNP 2149. Negtive COVID-19, influenza. cxr shows RLL infiltrate with blunting of R costophrenic angle. In the ED given 40mg IV lasix, ceftriaxone, zithromycin, duoneb, solumedrol. Review of Systems 2 Review of Systems: General: No fevers, malaise, unintentional weight loss HEENT: No blurred vision, diplopia. No sore throat, nasal congestion, rhinorrhea, sinus pain, ear pain Cardiovascular: No chest pain, palpitations, or leg edema Respiratory: +salvador, +wheezing, +cough. No orthopnea, pnd GI: No abdominal pain, nausea, vomiting, diarrhea, constipation, melena, hematochezia : No dysuria, hematuria, increased urinary frequency, decreased urinary output MSK: No myalgia, back pain Neuro: No headaches, weakness, paresthesias Skin: No rashes or lesions PMFSH Medical History Dyspnea Chronic cough Tobacco dependence URI (upper respiratory infection) COPD exacerbation Family History Other HTN (hypertension) Surgical History History of knee surgery Social History Alcohol intake: never Patient Tobacco Use Status: Current everyday Tobacco user Tobacco use type: Cigarette Cigarettes Per Day: 10 Years Smoked: 30 years e-Cigarette/Vaping Use: Never Used Advance Directives: No Advance Directives Information Provided: No Cognitive needs: No Hearing needs: No Vision needs: Yes Meds Allergies Allergy/AdvReac Type Severity Reaction Status Date / Time No Known Allergies Allergy Verified 06/28/23 14:38 Home Medications Medication Instructions Recorded Confirmed Last Taken Type flu vacc [id number] 6mos up(PF) 60 ml IM 05/01/20 01/23/22 Unknown History mcg(15 mcgx4)/0.5 mL IM syringe Physical Exam 2 Vital Signs and Narrative: Vital Signs: Last Vital Signs Temp 98 F 06/28/23 16:00 Pulse 89 06/28/23 16:00 Resp 18 06/28/23 16:00 BP 131/76 06/28/23 16:00 Pulse Ox 92 06/28/23 16:00 O2 Del Method Room Air 06/28/23 16:00 O2 Flow Rate 2 06/28/23 16:00 Oxygen Flow Rate 2 06/28/23 13:43 BMI result Body Mass Index 24.6 Constitutional - Awake and Alert, No apparent distress Eyes - PERRLA, EOMI Cardiovascular - S1S2, RRR, 1+ edema ble Respiratory - Normal lung expansion, Normal respiratory effort, No respiratory distress on 2L supplemental O2, diminished lung sounds with faint expiratory wheezing Gastrointestinal - NT / ND; +BS; No rebound or guarding Extremities - no calf tenderness bilaterally, no swelling Skin - Warm/Dry Neurological - Alert & oriented x3 Results Labs 06/28/23 14:27 06/28/23 14:27 Labs: Laboratory Results - last 24 hr 06/28/23 06/28/23 06/28/23 14:24 14:27 14:32 MCV 92.2 MCH 29.6 MCHC 32.2 RDW 14.1 Plt Count 319 MPV 10.8 Immature Gran % (Auto) 0.3 Neut % (Auto) 79.4 H Lymph % (Auto) 10.3 L [place] % (Auto) 8.3 Eos % (Auto) 1.3 Baso % (Auto) 0.4 Lymph # (Auto) 1.0 L [place] # (Auto) 0.8 Eos # (Auto) 0.1 Baso # (Auto) 0.0 Abs Immat Gran (auto) 0.03 Absolute Neuts (auto) 7.6 Absolute Nucleated RBC 0.000 Nucleated RBC % (auto) 0.0 PT 13.1 INR 1.1 VBG pH 7.48 H VBG pCO2 45 VBG pO2 41 VBG HCO3 34 H VBG O2 Saturation 70.0 VBG Base Excess 10.2 Anion Gap 10 L Estim Creat Clear Calc 62.6 Estimated GFR > 60 Random Glucose 107 Lactic Acid 1.0 Calcium 8.7 D Total Bilirubin 0.5 Direct Bilirubin 0.2 AST 98 H ALT 95 H Alkaline Phosphatase 229 H B-Natriuretic Peptide 2149 H Total Protein 6.5 Albumin 3.4 L COVID-19 (CARLOS) Negative COVID-19 Clin Com See Note Influenza Type A (KRISTINA) Negative Influenza Type B (KRISTINA) Negative Influenza A & B Note See Note Imaging Radiologist's Impressions: Impressions Chest X-Ray 06/28/23 14:39 IMPRESSION: 1. Right lower lobe patchy atelectasis or infiltrate. 2. Mild blunting of right CP angle question pleural thickening. Right lower lobe patchy infiltrate/atelectasis. Assessment and Plan (1) Pneumonia: Status: Acute (2) New onset of congestive heart failure: Status: Acute (3) COPD exacerbation: Status: Acute (4) Acute hypoxemic respiratory failure: Status: Acute (5) Elevated troponin: Status: Acute Plan 67 year old female with history of RADHA noncompliant with cpap, COPD who is a current 1/2-1ppd cigarette smoker with nocturnal hypoxia admitted for pneumonia and copd exacerbation as well as new onset CHF with acute hypoxemic respiratory failure #Acute hypoxemic respiratory failure -has chronci nocturnal hypoxia at baseline -likely r/t pneumonia, CHF exacerbation -VBG reassuring, no acidosis, mild hypercapnia -continue supplemental O2 to maintain oximetry 90-92% #New onset congestive heart failure -BNT >2100, CXR with R pleural effusion -40mg IV lasix -strict I&O -cardiac diet -echo -cardiology consult #Acute pneumonia RLL -IV ceftriaxone and azithromycin (initiated 06/28) -sputum culture, legionella ag, strep pneumo ag -symptomatic management #COPD exacerbation -resp panel pending -40mg IV solumedrol BID -duonebs q4h, albuterol prn -azithromycin as above #Elevated trop -possibly demand due to ischemic/CHF, but has new t wave inversions V1-V4 -no chest pain -initial trop 35, repeat pending -echo -monitor on tele -cardiology consult #RADHA- non compliant with cpap at home -cpap bedtime #cigarette smoker -cessation strongly advised -patches for nrt DVT prophylxis- lovenox Full code Pt requires inpt stay at least 2 midnights for management of acute hypoxia due to new onset chf and pneumonia requiring iv diuresis, iv abx, supplemental o2, and expert consultation Quality Stroke Does the patient have a stroke diagnosis?: No VTE Prior VTE?: No VTE Risk Level:: Medical - moderate - high VTE Device Contraindication: Treatment Not Indicated VTE Drug Contraindication: N/A - Med Ordered
--- NOTE | 2023-06-28 17:33 | PC.NURSE ---
Call placed to [facility] in [place] for last dose verification, left message on after hours line.
--- NOTE | 2023-06-28 17:43 | PC.NURSE ---
Last dose verified with [facility], Duane is lead application architect. Last dosed in clinic 06/26/2023, 10:06 am at 50mg. Received one THB for 06/27/23, 50mg.
--- NOTE | 2023-06-28 17:49 | PHA.MEDREC ---
Pharmacy Consult ? Medication Reconciliation Pharmacy has completed the medication reconciliation. Patient reported medications. Reports has not been on ativan for month due to not getting a refill. Reported using a family memeber updraft but does not have a prescription for herself. Katrina Holder, PharmD
[2023-06-28] MEDS: Enoxaparin Sodium 40 MG/0.4 ML SYRINGE SUBCUT (17:56)
[2023-06-28] MEDS: cefTRIAXone sodium 1 GM in 0.9 % Sodium Chloride 50 ML IV (17:57)
[2023-06-28] MEDS: Nicotine 21 MG PATCH.TD24 TRANSDERMA (18:01)
[2023-06-28 18:28] LABS: Troponin-I High Sensitivity 27.4 ng/L (<3.5-17.0)
--- NOTE | 2023-06-28 18:31 | HE.PHANOTE ---
Methadone Verification Pharmacy has received the methadone verification form from Gregoria. Patient last received methadone 50 mg at the clinic 06/26/23, with a take home bottle for 06/27/23. Information received by Duane at the clinic. Katrina Holder, JaspreetD
[2023-06-28] MEDS: Albuterol/Iprat 2.5/0.5MG 3 ML AMPUL.NEB INHALE (19:28)
[2023-06-28] MEDS: methADONE HCl 20 MG/2 ML ORAL.CONC 50 MG PO (19:35)
[2023-06-28] MEDS: Azithromycin 500 MG in 0.9 % Sodium Chloride 250 ML 125 MG IV (19:36)
--- NOTE | 2023-06-28 23:11 | PC.NURSE ---
PT resting, on 2L NC, sat's high mid 90's. NO complaints at this time. Awaiting bed assignment.
[2023-06-29] VITALS (14 sets, daily range): BP systolic 117–148; BP diastolic 67–80; PULSE 60–91; RESP 15–20; TEMP 36.1–36.9; O2SAT 88–95; BMI 23.5
[2023-06-29] MEDS: 0.9 % Sodium Chloride Flush 3 ML SYRINGE IVFLUSH (00:05)
[2023-06-29 05:06] LABS: Basophils Percent Auto 0.1 % (0-2); Hematocrit 35.3 % (37.0-47.0); Hemoglobin 11.5 g/dl (12.0-16.0); Imm Gran Abs Auto 0.04 X10*3/uL (0.00-0.03); Imm Gran Pct Auto 0.5 % (0.0-0.4); Lymphocytes Absolute Auto 0.5 X10*3/uL (1.2-4.9); Lymphocytes Percent Auto 5.7 % (20-40); MANUAL DIFF FLAG SCAN; Mean Corpuscular HGB Conc 32.6 g/dl (31.0-35.0); Mean Corpuscular Hemoglobin 29.6 pg (27.0-33.0); Mean Corpuscular Volume 90.7 fL (80.0-98.0); Mean Platelet Volume 10.9 fL (9.4-12.3); Monocytes Absolute Auto 0.3 X10*3/uL (0.1-1.2); Monocytes Percent Auto 3.6 % (2-11); Neutrophils Absolute Auto 7.2 x10*3/uL (2.0-8.3); Neutrophils Percent Auto 90.1 % (45-73); Platelet Count 318 X10*3/uL (160-400); Red Blood Count 3.89 X10*6/uL (4.20-5.50); Red Cell Distribution Width 14.1 % (11.0-16.0); SCAN SMEAR FLAG 1
[2023-06-29 05:19] LABS: Anion Gap 14 (12-20); Blood Urea Nitrogen 22 mg/dL (9-16); Calcium 9.1 mg/dL (8.4-10.2); Carbon Dioxide 32 mmol/L (22-29); Chloride 99 mmol/L (96-108); Estimated Glomerular Filt Rate 57; Glucose Random 152 mg/dL (60-115); Potassium 4.2 mmol/L (3.3-5.1); Sodium 141 mmol/L (135-145)
[2023-06-29 05:22] LABS: SLIDE REVIEW VERIFIED
[2023-06-29] MEDS: methylPREDNISolone Sod Succ 40 MG/ML VIAL IVPUSH ×2 (06:12→17:14)
--- NOTE | 2023-06-29 07:00 | CA_ITS ---
Transthoracic Echocardiogram Patient (Last, First, Middle): Elizabeth Fountain, Gender: Female Date of : 1955 Age: 67 Procedure Date: 06/29/2023 Procedure Type: Transthoracic Echocardiogram Location: ER Height: 160.02 cm Weight: 62.6 kg BSA: 1.65 m2 Heart Rate: 79 bpm BP: 139 / 80 mmHg Tape Editor: Referring MD: Juan Cruz MD Symptoms: chf Study Quality: Adequate ECG Rhythm: Sinus Conclusions: - The left ventricular systolic function is mildly decreased. The calculated ejection fraction is 43% by biplane method. - No obvious valvular pathology seen on this study. Findings Left Ventricle Normal left ventricular cavity size. There is mildly increased left ventricular wall thickness. The left ventricular systolic function is mildly decreased. The calculated ejection fraction is 43% by biplane method. There is mild global hypokinesis. Evidence suggests grade I (mild) diastolic dysfunction. Right Ventricle Normal right ventricular cavity size and systolic function. Atria The left atrium is moderately dilated. Aortic Valve There is a normal trileaflet aortic valve. There is mild calcification of the aortic valve. There is no aortic valve stenosis. There is no aortic valve regurgitation. Mitral Valve The mitral valve appears normal. There is trace mitral valve regurgitation. There is no mitral valve stenosis. Pulmonic Valve The pulmonic valve is likely normal. Tricuspid Valve Normal tricuspid valve structure. There is trace tricuspid valve regurgitation. Borderline RVSP. Great Vessels The asc aorta is normal in size. Venous The inferior vena cava is normal in size and collapses greater than 50% with inspiration. There is evidence of a dilated coronary sinus. Pericardium/Pleural There is no evidence of pericardial effusion. Prior Study Comparison No prior study available for comparison. Recommendations, Care & Conclusions No obvious valvular pathology seen on this study. Measurements 2D Linear Measurements IVSd: 1.27 0.6-0.9/0.6-1.0 cm LVIDd: 5.30 3.9-5.3/4.2-5.9 cm LVIDd Index: 3.21 2.4-3.2/2.2-3.1 cm/m2 LVIDs: 4.16 2.0-3.6 cm LVPWd: 1.21 0.7-1.1 cm LA Diam: 3.80 2.7-3.8/3.0-4.0 cm LAIDs Index: 2.30 1.5-2.3 cm/m2 LV Mass: 334.92 67-162/88-224 g LV Mass Index: 202.98 43-95/49-115 g/m2 LVOT Diam: 2.00 3.0+(-)1.3 cm 2D Systolic Function EF 4C: 43.60 >55% EF 2C: 42.80 >55% EF BiP: 43.00 >55% Mitral Valve MV Pk E: 0.57 MV PK A: 0.77 MV Decel Time: 219.00 E/A: 0.70 E'Lateral: 4.03 E'Medial: 5.22 E/E' Med: 10.80 E/E' Lat: 14.00 PHT: 64.00 MVA PHT: 3.44 Decel Casey: 2.58 Aortic Valve AoV Pk Jamaal: 1.65 AoV Mn Jamaal: 1.08 AoV VTI: 0.31 AoV Pk Grad: 11.00 Aov Mn Grad: 6.00 JAVI Cont.VTI: 2.22 LVOT LVOT Pk Jamaal: 1.03 LVOT Mn Jamaal: 0.76 LVOT VTI: 0.22 LVOT Pk Grad: 4.00 LVOT Mn Grad: 3.00 LVOT Diam: 2.00 LVOT Area: 3.14 Diastolic Function MV Pk E: 0.57 MV Pk A: 0.77 E/A: 0.70 E'Medial: 5.22 E/E' Med: 10.80 E' Laterial: 4.03 E/E' Lat: 14.00 Right Ventricle TAPSE (mm): 28.70 TVS' Jamaal: 14.40 Tricuspid Valve TR Pk Jamaal: 2.92 TR Pk Grad: 34.00 RA Press: 3.00 RVSP: 37.00 Great Vessels Aorta Sinus of Valsalva: 3.00 2.0-3.5 cm Pulmonary Valve PV Pk Jamaal: 1.22 Peak PV Grad: 6.00 Updated in Other Vendor System with Status of Final Sharan Abbasi MD electronically signed on 06/29/2023 12:39:36 PM with status of Final
[2023-06-29] MEDS: Fluticasone/Umeclidinium/Vilanterol 200/62.5/25 BLST.W.DEV 1 PUFF INHALE (07:18)
[2023-06-29] MEDS: Albuterol/Iprat 2.5/0.5MG 3 ML AMPUL.NEB INHALE ×4 (07:18→20:27)
--- NOTE | 2023-06-29 07:51 | PC.NURSE ---
ASSUMED CARE OF PT, APPEARS IN NAD, OFFERING NO COMPLAINTS. RESP EVEN, NONLABOURED. 88% ON 2L, INCREASED TO 3L. MEDICATED PER JUL.
[2023-06-29] MEDS: methADONE HCl 20 MG/2 ML ORAL.CONC 50 MG PO (08:00)
[2023-06-29] MEDS: Nicotine 14 MG PATCH.TD24 TRANSDERMA (08:00)
[2023-06-29] MEDS: Furosemide 40 MG/4 ML VIAL IVPUSH (08:00)
--- NOTE | 2023-06-29 08:55 | ECG_ITS ---
Test Reason : abn ekg Blood Pressure : / mmHG Vent. Rate : 080 BPM Atrial Rate : 080 BPM P-R Int : 138 ms QRS Dur : 080 ms QT Int : 498 ms P-R-T Axes : 071 014 119 degrees QTc Int : 574 ms Sinus rhythm with Premature atrial complexes Moderate voltage criteria for LVH, may be normal variant ( Sokolow-Cifuentes , Fowler product ) Septal infarct (cited on or before 28-JUN-2023) Marked T wave abnormality, consider anterolateral ischemia Prolonged QT Abnormal ECG When compared with ECG of 28-JUN-2023 15:24, No significant changes seen Referred By: Radha Car Electronically Signed By:RADHA CAR
--- NOTE | 2023-06-29 09:19 | MHC.CM.PN ---
IMM 06/29/23, EMR REVIEWED PT ADMITTED W/NEW ONSET CHF, PNA & HYPOXIA, CM MET W/PT WHO REPORTS SHE WAS LIVING W/DTR AND NOW STAYING W/HER MOTHER, PT IS MOSTLY INDEP HOWEVER HER DTR IS HER [employer], PT REPORTS SHE HAS AN O2 CONCENTRATOR AT HOME HOWEVER HAD NOT BEEN USING O2 UNTIL ABOUT A MONTH AGO AND HAS BEEN WEARING IT CONTINUOUSLY, PT WOULD LIKE TO COMPLETE A HCP HOWEVER PT IN NEED OF EKG AND CM TO REVISIT. PT VERIFIES NEW PCP IS FARHAT WALKER, ERIC BLAIR AND BOOSTED EXCEPT THIS YR.
--- NOTE | 2023-06-29 10:15 | P.CONCA_ITS ---
History of Present Illness History of Present Illness Date of Service: 06/29/23 Chief complaint: New onset CHF, Pneumonia, hypoxia Narrative: This is a cardiology consultation regarding congestive heart failure. Patient has a history of COPD and still smokes. She also has RADHA, noncompliant with CPAP. She has presented with complaints of shortness of breath. Over the last few weeks, she states she has been having increasing shortness of breath and gets symptoms even with mild activity. No clear anginal-type chest pains. Labs show high cardiac BNP. She has been subsequently admitted for further evaluation. Patient denies any prior history of coronary artery disease, myocardial infarction or cardiomyopathy or in fact any other cardiac concerns. Review of Systems 2 Review of Systems: Yes all other systems are reviewed and are negative Constitutional: Constitutional: Reports as per HPI and Reports no additional constitutional complaints Eyes: Eyes: Reports as per HPI and Denies no additional eye complaints ENT: Denies system reviewed and no additional complaints, except as documented and Reports as per HPI Cardiovascular: Cardiovascular: Reports as per HPI, Reports no additional cardiovascular complaints, Denies acrocyanosis, Denies cool extremities, Denies chest pain, Denies leg edema, Denies lightheadedness, Denies palpitations and Reports dyspnea Respiratory: Respiratory: Reports as per HPI, Denies no additional respiratory complaints and Reports dyspnea Gastrointestinal: Gastrointestinal: Reports as per HPI and Denies no additional gastrointestinal complaints Genitourinary: Genitourinary: Reports as per HPI Musculoskeletal: Musculoskeletal: Reports no additional musculoskeletal complaints and Reports as per HPI Integumentary/Breasts: Skin/Breast: Reports system reviewed and no additional complaints, except as docu Neurologic: Reports system reviewed and no additional complaints, except as documented and Reports as per HPI Psychiatric: Psychiatric: Reports no additional psychiatric complaints and Reports as per HPI Endocrine: Endocrine: Reports no additional endocrine complaints, Reports as per HPI and Denies palpitations Hematologic/Lymphatic: Hematologic/Lymphatic: Reports no additional hematologic/lymphatic complaints and Reports as per HPI Allergic/Immunologic: Allergic/Immunologic: Reports no additional allergic/immunologic complaints and Reports as per HPI PMF Past Medical History Medical History Dyspnea Chronic cough Tobacco dependence URI (upper respiratory infection) COPD exacerbation Family History Family History Other HTN (hypertension) Surgical History Surgical History History of knee surgery Social History Social History Alcohol intake: never Patient Tobacco Use Status: Current everyday Tobacco user Tobacco use type: Cigarette Cigarettes Per Day: 10 Years Smoked: 30 years e-Cigarette/Vaping Use: Never Used service: No Cognitive needs: No Hearing needs: No Vision needs: Yes Meds Allergies Allergy/AdvReac Type Severity Reaction Status Date / Time No Known Allergies Allergy Verified 06/28/23 14:38 Active Medications: Current Medications Acetaminophen (Acetaminophen 325 Mg Tablet) 650 mg PO Q6H PRN PRN Reason: Pain, Mild (Pain Scale 1-3) Albuterol Sulfate (Albuterol Sulfate (0.083%) 2.5 Mg/3 Ml Vial.Neb) 2.5 mg INHALE Q2H PRN PRN Reason: Shortness of Breath/Wheezing Albuterol/Ipratropium (Albuterol/Iprat 2.5/0.5mg 3 Ml Ampul.Neb) 3 ml INHALE RQ4H WHILE AWAKE [facility] Last Admin: 06/29/23 07:18 Dose: 3 ml Enoxaparin Sodium (Enoxaparin Sodium 40 Mg/0.4 Ml Syringe) 40 mg SUBCUT Q24H [facility] Last Admin: 06/28/23 17:56 Dose: 40 mg Fluticasone/Umeclidinium/Vilanterol (Fluticasone/Umeclidinium/Vilanterol 200/62.5/25 Blst.W.Dev) 1 puff INHALE RDAILY [facility] Last Admin: 06/29/23 07:18 Dose: 1 puff Furosemide (Furosemide 40 Mg/4 Ml Vial) 40 mg IVPUSH DAILY [facility]; Protocol Last Admin: 06/29/23 08:00 Dose: 40 mg Guaifenesin (Guaifenesin 200 Mg/10 Ml 10 Ml Liquid) 10 ml PO Q4H PRN PRN Reason: Cough Ceftriaxone Sodium 1 gm/ (Sodium Chloride) 50 mls @ 100 mls/hr IV Q24H [facility] Last Infusion: 06/28/23 18:59 Dose: Infused Azithromycin 500 mg/ Sodium (Chloride) 250 mls @ 125 mls/hr IV Q24H [facility] Last Infusion: 06/28/23 21:40 Dose: Infused Methadone HCl (Methadone Hcl 20 Mg/2 Ml Oral.Conc) 50 mg PO DAILY [facility] Last Admin: 06/29/23 08:00 Dose: 50 mg Methylprednisolone Sodium Succinate (Methylprednisolone Sod Succ 40 Mg/Ml Vial) 40 mg IVPUSH Q12H [facility] Last Admin: 06/29/23 06:12 Dose: 40 mg Nicotine (Nicotine 14 Mg Patch.Td24) 14 mg TRANSDERMA DAILY [facility] Last Admin: 06/29/23 08:00 Dose: 14 mg Ondansetron HCl (Ondansetron Hcl 4 Mg/2 Ml Vial) 4 mg IVPUSH Q8H PRN PRN Reason: Nausea and Vomiting Senna (Sennosides 8.6 Mg Tablet) 17.2 mg PO BEDTIME PRN PRN Reason: Constipation Sodium Chloride (0.9 % Sodium Chloride Flush 3 Ml Syringe) 3 ml IVFLUSH QSHIFT [facility] Last Admin: 06/29/23 08:01 Dose: Not Given Home Medications Medication Instructions Recorded Confirmed Last Taken Type fluticasone fur. 200 mcg-umeclid 1 inh inhalation DAILY 06/28/23 06/28/23 06/27/23 History 62.5 mcg-vilant 25 mcg inhalat.powder (Trelegy Ellipta) methadone 10 mg/mL oral concentrate 50 mg PO DAILY 06/28/23 06/28/23 06/27/23 History Physical Exam 2 Vital Signs: Vital Signs: Last Vital Signs Temp 98.2 F 06/29/23 09:09 Pulse 81 06/29/23 09:09 Resp 20 06/29/23 09:09 BP 146/70 H 06/29/23 09:09 Pulse Ox 90 L 06/29/23 09:09 O2 Del Method Nasal Cannula 06/29/23 09:09 O2 Flow Rate 3 06/29/23 09:09 Oxygen Flow Rate 2 06/28/23 13:43 BMI result Body Mass Index 24.6 Const: General: comfortable and no acute distress O rientation/consciousness: patient oriented x3 HEENT: Other: Unremarkable Head: Yes normal to inspection Neck: Neck: Yes normal visual inspection Chest: Chest palpation & inspection: normal inspection of the chest Resp: Auscultation: rhonchi and diminished lung sounds Cardio: Palpation: normal PMI Heart sounds: S1 normal heart sound present, S2 normal heart sound present, no gallops, no murmurs and no rubs GI: Palpation (GI): Soft to palpation Back/Spine/Pelvis: Other: unremarkable Skin: General skin exam: no rashes or lesions noted Neuro: General: patient oriented x3 Extrem: General: Yes normal to inspection Psych: Mental Status: mental status grossly normal Objective Labs and Meds 06/29/23 04:25 06/29/23 04:25 Lab results: Laboratory Results - last 24 hr 06/28/23 06/28/23 06/28/23 14:24 14:27 14:32 WBC 9.6 RBC 3.98 L Hgb 11.8 L Hct 36.7 L MCV 92.2 MCH 29.6 MCHC 32.2 RDW 14.1 Plt Count 319 MPV 10.8 Immature Gran % (Auto) 0.3 Neut % (Auto) 79.4 H Lymph % (Auto) 10.3 L Glenn % (Auto) 8.3 Eos % (Auto) 1.3 Baso % (Auto) 0.4 Lymph # (Auto) 1.0 L Glenn # (Auto) 0.8 Eos # (Auto) 0.1 Baso # (Auto) 0.0 Abs Immat Gran (auto) 0.03 Absolute Neuts (auto) 7.6 Absolute Nucleated RBC 0.000 Nucleated RBC % (auto) 0.0 Smear Tech's Comments Hold Purple Top PT 13.1 INR 1.1 VBG pH 7.48 H VBG pCO2 45 VBG pO2 41 VBG HCO3 34 H VBG O2 Saturation 70.0 VBG Base Excess 10.2 Sodium 137 Potassium 4.6 Chloride 100 Carbon Dioxide 32 H Anion Gap 10 L BUN 17 H Creatinine 0.79 Estim Creat Clear Calc 62.6 Estimated GFR > 60 Random Glucose 107 Lactic Acid 1.0 Calcium 8.7 D Total Bilirubin 0.5 Direct Bilirubin 0.2 AST 98 H ALT 95 H Alkaline Phosphatase 229 H Troponin I High Sens 35.3 H D B-Natriuretic Peptide 2149 H Total Protein 6.5 Albumin 3.4 L Hold Yellow Top COVID-19 (CARLOS) Negative COVID-19 Clin Com See Note Influenza Type A (KRISTINA) Negative Influenza Type B (KRISTINA) Negative Influenza A & B Note See Note 06/28/23 06/29/23 17:50 04:25 WBC 8.0 RBC 3.89 L Hgb 11.5 L Hct 35.3 L MCV 90.7 MCH 29.6 MCHC 32.6 RDW 14.1 Plt Count 318 MPV 10.9 Immature Gran % (Auto) 0.5 H Neut % (Auto) 90.1 H Lymph % (Auto) 5.7 L Glenn % (Auto) 3.6 Eos % (Auto) 0.0 Baso % (Auto) 0.1 Lymph # (Auto) 0.5 L Glenn # (Auto) 0.3 Eos # (Auto) 0.0 Baso # (Auto) 0.0 Abs Immat Gran (auto) 0.04 H Absolute Neuts (auto) 7.2 Absolute Nucleated RBC 0.000 Nucleated RBC % (auto) 0.0 Smear Tech's Comments VERIFIED Hold Purple Top SEE NOTE PT INR VBG pH VBG pCO2 VBG pO2 VBG HCO3 VBG O2 Saturation VBG Base Excess Sodium 141 Potassium 4.2 Chloride 99 Carbon Dioxide 32 H Anion Gap 14 BUN 22 H Creatinine 0.97 Estim Creat Clear Calc 51.0 Estimated GFR 57 Random Glucose 152 H Lactic Acid Calcium 9.1 Total Bilirubin Direct Bilirubin AST ALT Alkaline Phosphatase Troponin I High Sens 27.4 H B-Natriuretic Peptide Total Protein Albumin Hold Yellow Top See Note COVID-19 (CARLOS) COVID-19 Clin Com Influenza Type A (KRISTINA) Influenza Type B (KRISTINA) Influenza A & B Note ECG Interpretation: EKG shows sinus rhythm, anterior infarct type pattern with T inversions across the anterior leads. Repeat EKG after that is also similar. The EKG prior to that from January, T-waves seem rather upright. Imaging Radiologist's impression: Impressions Chest X-Ray 06/28/23 14:39 IMPRESSION: 1. Right lower lobe patchy atelectasis or infiltrate. 2. Mild blunting of right CP angle question pleural thickening. Right lower lobe patchy infiltrate/atelectasis. Assessment and Plan (1) Acute electrocardiogram changes: Status: Acute (2) Acute hypoxemic respiratory failure: Status: Acute (3) Elevated troponin: Status: Acute (4) New onset of congestive heart failure: Status: Acute Plan As described above, EKG changes of anterior infarction of undetermined duration. However, troponins are only marginally elevated and probably not acute. Cardiac BNP is quite high at over 2000. Clinically, not appearing to be in acute heart failure. She needs an echocardiogram for cardiac function assessment. Otherwise, treat her for COPD. Once echocardiogram is reviewed, we will follow-up with you. Procedures Date of Service Date of Service: 06/29/23
[2023-06-29] MEDS: Aspirin Enteric Coated 81 MG TABLET.DR PO (11:27)
[2023-06-29] MEDS: Atorvastatin Calcium 80 MG TABLET PO (11:27)
[2023-06-29] MEDS: Metoprolol Tartrate 25 MG TABLET PO ×2 (11:27→22:42)
[2023-06-29 11:40] LABS: Hematocrit 37.2 % (37.0-47.0); Mean Corpuscular HGB Conc 32.3 g/dl (31.0-35.0); Mean Corpuscular Hemoglobin 29.5 pg (27.0-33.0); Mean Corpuscular Volume 91.4 fL (80.0-98.0); Mean Platelet Volume 10.8 fL (9.4-12.3); Platelet Count 362 X10*3/uL (160-400); Red Blood Count 4.07 X10*6/uL (4.20-5.50); Red Cell Distribution Width 14.4 % (11.0-16.0); White Blood Count 13.4 X10*3/uL (4.8-10.8)
[2023-06-29 11:50] LABS: PTT Heparin Drip 26.7 SEC (53-77.9)
[2023-06-29 13:16] LABS: Adenovirus PCR Not Detected (Not Detect.); Bordetella parapertussis PCR Not Detected (Not Detect.); Bordetella pertussis PCR Not Detected (Not Detect.); Chlamydia pneumoniae PCR Not Detected (Not Detect.); Coronavirus 229E PCR Not Detected (Not Detect.); Coronavirus HKU1 PCR Not Detected (Not Detect.); Coronavirus NL63 PCR Not Detected (Not Detect.); Coronavirus OC43 PCR Not Detected (Not Detect.); Human metapneumovirus PCR Not Detected (Not Detect.); Influenza A PCR Not Detected (Not Detect.); Influenza B PCR Not Detected (Not Detect.); Mycoplasma pneumoniae PCR Not Detected (Not Detect.); Parainfluenza 1 PCR Not Detected (Not Detect.); Parainfluenza 2 PCR Not Detected (Not Detect.); Parainfluenza 3 PCR Not Detected (Not Detect.); Parainfluenza 4 PCR Not Detected (Not Detect.); RSV PCR Not Detected (Not Detect.); Rhino/Enterovirus PCR Not Detected (Not Detect.)
[2023-06-29] MEDS: Heparin Sodium,Porcine/1/2NS 25,000 UNIT/250 ML IV.SOLN 7.22 UNIT IVCONT (13:18)
[2023-06-29 13:30] LABS: SARS-CoV-2 PCR Not Detected (Not Detect.)
--- NOTE | 2023-06-29 15:34 | P.PNIM_ITS ---
Subjective Subjective Date of Service: 06/29/23 Interval History: Being followed for CHF/acute hypoxic respiratory failure and acute COPD exacerbation Patient feels better since admission still complaining of shortness of breath, denies chest pain, no lightheadedness, no dizziness, no palpitations , tolerating diet with no nausea no vomiting or abdominal pain, no urinary symptoms. Review of Systems All other system reviewed and negative. Physical Exam 2 Vital Signs: Vital Signs: Last Vital Signs Temp 98.4 F 06/29/23 11:24 Pulse 80 06/29/23 15:30 Resp 18 06/29/23 15:30 BP 136/73 06/29/23 11:24 Pulse Ox 93 06/29/23 11:24 O2 Del Method Nasal Cannula 06/29/23 11:24 O2 Flow Rate 3 06/29/23 11:24 Oxygen Flow Rate 2 06/28/23 13:43 BMI result Body Mass Index 23.5 Const: Other: General awake alert x3, resting comfortably in no acute distress. Neck supple, no JVD. CVS regular rate rhythm, Respiratory lungs clear to auscultation, no respiratory distress, no wheeze, no rhonchi. Gastrointestinal abdomen soft, non tender, bowel sounds audible, no guarding , no rigidity. Extremities no edema. Neuro nonfocal Skin no rash Psych appropriate affect Objective Data Active Medications Acetaminophen (Acetaminophen 325 Mg Tablet) 650 mg PO Q6H PRN PRN Reason: Pain, Mild (Pain Scale 1-3) Albuterol Sulfate (Albuterol Sulfate (0.083%) 2.5 Mg/3 Ml Vial.Neb) 2.5 mg INHALE Q2H PRN PRN Reason: Shortness of Breath/Wheezing Albuterol/Ipratropium (Albuterol/Iprat 2.5/0.5mg 3 Ml Ampul.Neb) 3 ml INHALE RQ4H WHILE AWAKE [facility] Last Admin: 06/29/23 15:29 Dose: 3 ml Documented By: NAKUL Aspirin (Aspirin Enteric Coated 81 Mg Tablet.) 81 mg PO DAILY [facility] Last Admin: 06/29/23 11:27 Dose: 81 mg Documented By: DESIRE Atorvastatin Calcium (Atorvastatin Calcium 80 Mg Tablet) 80 mg PO DAILY [facility] Last Admin: 06/29/23 11:27 Dose: 80 mg Documented By: DESIRE Fluticasone/Umeclidinium/Vilanterol (Fluticasone/Umeclidinium/Vilanterol 200/62.5/25 Blst.W.Dev) 1 puff INHALE RDAILY [facility] Last Admin: 06/29/23 07:18 Dose: 1 puff Documented By: REYNALDO Furosemide (Furosemide 40 Mg/4 Ml Vial) 40 mg IVPUSH DAILY [facility]; Protocol Last Admin: 06/29/23 08:00 Dose: 40 mg Documented By: STORM Guaifenesin (Guaifenesin 200 Mg/10 Ml 10 Ml Liquid) 10 ml PO Q4H PRN PRN Reason: Cough Heparin Sodium (Porcine) (Heparin Sodium,Porcine 5,000 Unit/Ml Vial) 2,400 unit 40 unit/kg (2400 unit) IVPUSH PROTOCOL BOLUS PRN; Protocol PRN Reason: 40 unit/kg - Heparin Protocol Heparin Sodium (Porcine) (Heparin Sodium,Porcine 5,000 Unit/Ml Vial) 4,800 unit 80 unit/kg (4800 unit) IVPUSH PROTOCOL BOLUS PRN; Protocol PRN Reason: 80 unit/kg - Heparin Protocol Heparin Sodium/Sodium Chloride (Heparin Sodium,Porcine/1/2ns) 25,000 unit in 250 mls @ 0 mls/hr IVCONT .Q0M [facility]; Protocol Last Admin: 06/29/23 13:18 Dose: 12 units/kg/hr, 7.22 mls/hr Documented By: DESIRE Co-signed By: SHREE Methadone HCl (Methadone Hcl 20 Mg/2 Ml Oral.Conc) 50 mg PO DAILY [facility] Last Admin: 06/29/23 08:00 Dose: 50 mg Documented By: STORM Methylprednisolone Sodium Succinate (Methylprednisolone Sod Succ 40 Mg/Ml Vial) 40 mg IVPUSH Q12H [facility] Last Admin: 06/29/23 06:12 Dose: 40 mg Documented By: MAURA Metoprolol Tartrate (Metoprolol Tartrate 25 Mg Tablet) 25 mg PO BID [facility]; Protocol Last Admin: 06/29/23 11:27 Dose: 25 mg Documented By: DESIRE Nicotine (Nicotine 14 Mg Patch.Td24) 14 mg TRANSDERMA DAILY [facility] Last Admin: 06/29/23 08:00 Dose: 14 mg Documented By: STORM Ondansetron HCl (Ondansetron Hcl 4 Mg/2 Ml Vial) 4 mg IVPUSH Q8H PRN PRN Reason: Nausea and Vomiting Senna (Sennosides 8.6 Mg Tablet) 17.2 mg PO BEDTIME PRN PRN Reason: Constipation Sodium Chloride (0.9 % Sodium Chloride Flush 3 Ml Syringe) 3 ml IVFLUSH QSHIFT [facility] Last Admin: 06/29/23 08:01 Dose: Not Given Documented By: STORM Non-Admin Reason: IV Running Labs 06/29/23 11:09 06/29/23 04:25 Labs: Laboratory Results - last 24 hr 06/28/23 06/29/23 06/29/23 17:50 02:02 04:25 MCV 90.7 MCH 29.6 MCHC 32.6 RDW 14.1 Plt Count 318 MPV 10.9 Immature Gran % (Auto) 0.5 H Neut % (Auto) 90.1 H Lymph % (Auto) 5.7 L Emery % (Auto) 3.6 Eos % (Auto) 0.0 Baso % (Auto) 0.1 Lymph # (Auto) 0.5 L Emery # (Auto) 0.3 Eos # (Auto) 0.0 Baso # (Auto) 0.0 Abs Immat Gran (auto) 0.04 H Absolute Neuts (auto) 7.2 Absolute Nucleated RBC 0.000 Nucleated RBC % (auto) 0.0 Smear Tech's Comments VERIFIED Hold Purple Top SEE NOTE aPTT Heparin Protocol Anion Gap 14 Estim Creat Clear Calc 51.0 Estimated GFR 57 Random Glucose 152 H Calcium 9.1 Hold Yellow Top See Note Respiratory Panel Mix See Note Adenovirus (Rapid PCR) Not Detected B.pert (TEM-PCR) Not Detected B.parapertussis DNA PCR Not Detected C. pneumoniae DNA (PCR) Not Detected Coronavirus OC43 (PCR) Not Detected Coronavirus HKU1 (PCR) Not Detected Coronavirus 229E (PCR) Not Detected Coronavirus NL63 (PCR) Not Detected Human Metapneumovir PCR Not Detected Influenza A (RT-PCR) Not Detected Influenza B (RT-PCR) Not Detected M. pneumoniae (PCR) Not Detected Parainfluenza 1 (PCR) Not Detected Parainfluenza 2 (PCR) Not Detected Parainfluenza 3 (PCR) Not Detected Parainfluenza 4 (PCR) Not Detected RSV (PCR) Not Detected Entero/Rhino (PCR) Not Detected SARS-CoV-2 RNA (RT-PCR) Not Detected 06/29/23 11:09 MCV 91.4 MCH 29.5 MCHC 32.3 RDW 14.4 Plt Count 362 MPV 10.8 Immature Gran % (Auto) Neut % (Auto) Lymph % (Auto) Emery % (Auto) Eos % (Auto) Baso % (Auto) Lymph # (Auto) Emery # (Auto) Eos # (Auto) Baso # (Auto) Abs Immat Gran (auto) Absolute Neuts (auto) Absolute Nucleated RBC 0.000 Nucleated RBC % (auto) 0.0 Smear Tech's Comments Hold Purple Top aPTT Heparin Protocol 26.7 L Anion Gap Estim Creat Clear Calc Estimated GFR Random Glucose Calcium Hold Yellow Top Respiratory Panel Mix Adenovirus (Rapid PCR) B.pert (TEM-PCR) B.parapertussis DNA PCR C. pneumoniae DNA (PCR) Coronavirus OC43 (PCR) Coronavirus HKU1 (PCR) Coronavirus 229E (PCR) Coronavirus NL63 (PCR) Human Metapneumovir PCR Influenza A (RT-PCR) Influenza B (RT-PCR) M. pneumoniae (PCR) Parainfluenza 1 (PCR) Parainfluenza 2 (PCR) Parainfluenza 3 (PCR) Parainfluenza 4 (PCR) RSV (PCR) Entero/Rhino (PCR) SARS-CoV-2 RNA (RT-PCR) Assessment and Plan (1) Elevated troponin: Status: Acute (2) Acute hypoxemic respiratory failure: Status: Acute (3) Acute electrocardiogram changes: Status: Acute (4) Pneumonia: Status: Acute Plan 67 year old female with history of RADHA noncompliant with cpap, COPD who is a current 1/2-1ppd cigarette smoker with nocturnal hypoxia admitted for pneumonia and copd exacerbation as well as new onset CHF with acute hypoxemic respiratory failure #Acute hypoxemic respiratory failure -has chronci nocturnal hypoxia at baseline -likely acute COPD exacerbation, and CHF exacerbation -VBG reassuring, no acidosis, mild hypercapnia -continue supplemental O2 to maintain oximetry 90-92% ##Elevated trop, abnormal EKG -possibly demand due to ischemic/CHF, has new t wave inversions V1-V4, repeat EKG showed no significant change but minimally elevated troponin 35, repeat 27.4 -no chest pain -echo preliminary report EF 40%, seen by Cardiology he will review echo and possible catheterization -monitor on tele -seen by Cardiology they recommend aspirin beta-blockers statins and IV heparin -follow lipid profile #New onset congestive heart failure -BNP >2100, CXR with R pleural effusion -40mg IV lasix -strict I&O, follow BMP and BNP -cardiac diet -echo preliminary reading EF 40% #Acute pneumonia RLL -initially thought to have acute pneumonia but patient has similar findings in prior chest x-ray -no fevers, normal WBC count, will DC IV ceftriaxone and azithromycin (initiated 06/28) -will follow blood cultures, strep pneumo antigen # acute COPD exacerbation -resp panel pending -continue 40mg IV solumedrol BID,duonebs q4h, albuterol prn #RADHA- non compliant with cpap at home, cpap bedtime #cigarette smoker -cessation strongly advised, continue nicotine patch 14mg/24h # prolonged QT will DC azithromycin, follow EKG DVT prophylxis- IV heparin drip Full code Pt requires continued inpt stay for management of acute hypoxia due to new onset chf ,requiring iv diuresis, abnormal EKG on IV heparin, supplemental o2, and expert consultation Quality Stroke Does the patient have a stroke diagnosis?: No VTE Prior VTE?: No VTE Risk Level:: Medical - moderate - high VTE Device Contraindication: Treatment Not Indicated VTE Drug Contraindication: N/A - Med Ordered
[2023-06-29 19:09] LABS: PTT Heparin Drip 31.7 SEC (53-77.9)
[2023-06-29] MEDS: Heparin Sodium,Porcine 5,000 UNIT/ML VIAL 4800 UNIT IVPUSH (20:34)
[2023-06-29] MEDS: guaiFENesin 200 MG/10 ML 10 ML LIQUID PO (22:42)
[2023-06-30] VITALS (7 sets, daily range): BP systolic 119–142; BP diastolic 66–85; PULSE 67–84; RESP 16–20; TEMP 36.6–37.1; O2SAT 92–96
--- NOTE | 2023-06-30 | ECG_ITS ---
Test Reason : ABN EKG Blood Pressure : / mmHG Vent. Rate : 085 BPM Atrial Rate : 085 BPM P-R Int : 140 ms QRS Dur : 082 ms QT Int : 458 ms P-R-T Axes : 069 024 105 degrees QTc Int : 545 ms Sinus rhythm with Premature atrial complexes with Aberrant conduction Minimal voltage criteria for LVH, may be normal variant ( Sokolow-Cifuentes ) T wave abnormality, consider anterolateral ischemia Prolonged QT Abnormal ECG No previous ECGs available Referred By: Juan Cruz Electronically Signed By:RADHA CAR
[2023-06-30 03:06] LABS: PTT Heparin Drip 45.7 SEC (53-77.9)
[2023-06-30] MEDS: guaiFENesin 200 MG/10 ML 10 ML LIQUID PO ×2 (03:59→10:25)
[2023-06-30] MEDS: Heparin Sodium,Porcine 5,000 UNIT/ML VIAL 2400 UNIT IVPUSH ×2 (04:00→11:04)
[2023-06-30 07:27] LABS: Hematocrit 35.1 % (37.0-47.0); Hemoglobin 11.2 g/dl (12.0-16.0); Mean Corpuscular HGB Conc 31.9 g/dl (31.0-35.0); Mean Corpuscular Hemoglobin 29.2 pg (27.0-33.0); Mean Corpuscular Volume 91.4 fL (80.0-98.0); Platelet Count 383 X10*3/uL (160-400); Red Blood Count 3.84 X10*6/uL (4.20-5.50); Red Cell Distribution Width 14.5 % (11.0-16.0); White Blood Count 18.2 X10*3/uL (4.8-10.8)
[2023-06-30] MEDS: methylPREDNISolone Sod Succ 40 MG/ML VIAL IVPUSH (07:29)
[2023-06-30 07:43] LABS: Prothrombin Time 11.6 SEC (11.1-13.3)
[2023-06-30 07:45] LABS: Anion Gap 12 (12-20); Blood Urea Nitrogen 41 mg/dL (9-16); Calcium 8.9 mg/dL (8.4-10.2); Carbon Dioxide 33 mmol/L (22-29); Chloride 100 mmol/L (96-108); Cholesterol 135 mg/dL (<200); Creatinine Clr Calc Pharmacy 49.2; Estimated Glomerular Filt Rate > 60; Glucose Random 96 mg/dL (60-115); HDL Cholesterol 42 mg/dL (>40); LDL Cholesterol Calculated 81 mg/dL (<100); Potassium 4.6 mmol/L (3.3-5.1); Sodium 140 mmol/L (135-145); Triglycerides 64 mg/dL (<150)
[2023-06-30 07:48] LABS: B Type Natriuretic Peptide 962 pg/mL (<100)
[2023-06-30] MEDS: Albuterol/Iprat 2.5/0.5MG 3 ML AMPUL.NEB INHALE ×3 (08:07→15:24)
[2023-06-30] MEDS: Fluticasone/Umeclidinium/Vilanterol 200/62.5/25 BLST.W.DEV 1 PUFF INHALE (08:07)
--- NOTE | 2023-06-30 10:01 | P.PNCA_ITS ---
Subjective Subjective Date of Service: 06/30/23 Interval history: Patient states she feels okay. No new complaints Review of Systems Review of Systems Yes all other systems are reviewed and are negative Constitutional: Reports as per HPI and Reports no additional constitutional complaints Eyes: Reports as per HPI and Denies no additional eye complaints Denies system reviewed and no additional complaints, except as documented and Reports as per HPI Cardiovascular: Reports as per HPI, Reports no additional cardiovascular complaints, Denies acrocyanosis, Denies cool extremities, Denies chest pain, Denies leg edema, Denies lightheadedness, Denies palpitations and Reports dyspnea Respiratory: Reports as per HPI, Denies no additional respiratory complaints and Reports dyspnea Gastrointestinal: Reports as per HPI and Denies no additional gastrointestinal complaints Musculoskeletal: Reports no additional musculoskeletal complaints and Reports as per HPI Skin/Breast: Reports system reviewed and no additional complaints, except as docu Reports system reviewed and no additional complaints, except as documented and Reports as per HPI Psychiatric: Reports no additional psychiatric complaints and Reports as per HPI Endocrine: Reports no additional endocrine complaints, Reports as per HPI and Denies palpitations Hematologic/Lymphatic: Reports no additional hematologic/lymphatic complaints and Reports as per HPI Allergic/Immunologic: Reports no additional allergic/immunologic complaints and Reports as per HPI Physical Exam Vital Signs: Last Vital Signs Temp 98.7 F 06/30/23 07:18 Pulse 74 06/30/23 08:07 Resp 18 06/30/23 08:07 BP 129/68 06/30/23 07:18 Pulse Ox 94 06/30/23 07:18 O2 Del Method Nasal Cannula 06/30/23 07:18 O2 Flow Rate 3 06/29/23 15:49 Oxygen Flow Rate 2 06/28/23 13:43 BMI result Body Mass Index 23.5 Const General: comfortable and no acute distress Orientation/consciousness: patient oriented x3 HEENT Other: Unremarkable Head: Yes normal to inspection Neck Neck: Yes normal visual inspection Chest Chest palpation & inspection: normal inspection of the chest Resp Auscultation: rhonchi and diminished lung sounds Cardio Palpation: normal PMI Heart sounds: S1 normal heart sound present, S2 normal heart sound present, no gallops, no murmurs and no rubs GI Palpation (GI): Soft to palpation Back/Spine/Pelvis Other: unremarkable Skin General skin exam: no rashes or lesions noted Neuro General: patient oriented x3 Extrem General: Yes normal to inspection Psych Mental Status: mental status grossly normal Objective Labs and Meds 06/30/23 06:43 06/30/23 06:43 Lab results: Laboratory Results - last 24 hr 06/29/23 06/29/23 06/29/23 02:02 11:09 18:55 WBC 13.4 H RBC 4.07 L Hgb 12.0 Hct 37.2 MCV 91.4 MCH 29.5 MCHC 32.3 RDW 14.4 Plt Count 362 MPV 10.8 Absolute Nucleated RBC 0.000 Nucleated RBC % (auto) 0.0 PT INR aPTT Heparin Protocol 26.7 L 31.7 L Sodium Potassium Chloride Carbon Dioxide Anion Gap BUN Creatinine Estim Creat Clear Calc Estimated GFR Random Glucose Calcium B-Natriuretic Peptide Triglycerides Cholesterol LDL Cholesterol, Calc HDL Cholesterol Respiratory Panel Mix See Note Adenovirus (Rapid PCR) Not Detected B.pert (TEM-PCR) Not Detected B.parapertussis DNA PCR Not Detected C. pneumoniae DNA (PCR) Not Detected Coronavirus OC43 (PCR) Not Detected Coronavirus HKU1 (PCR) Not Detected Coronavirus 229E (PCR) Not Detected Coronavirus NL63 (PCR) Not Detected Human Metapneumovir PCR Not Detected Influenza A (RT-PCR) Not Detected Influenza B (RT-PCR) Not Detected M. pneumoniae (PCR) Not Detected Parainfluenza 1 (PCR) Not Detected Parainfluenza 2 (PCR) Not Detected Parainfluenza 3 (PCR) Not Detected Parainfluenza 4 (PCR) Not Detected RSV (PCR) Not Detected Entero/Rhino (PCR) Not Detected SARS-CoV-2 RNA (RT-PCR) Not Detected 06/30/23 06/30/23 02:44 06:43 WBC 18.2 H RBC 3.84 L Hgb 11.2 L Hct 35.1 L MCV 91.4 MCH 29.2 MCHC 31.9 RDW 14.5 Plt Count 383 MPV 11.0 Absolute Nucleated RBC 0.000 Nucleated RBC % (auto) 0.0 PT 11.6 INR 1.0 aPTT Heparin Protocol 45.7 L D Sodium 140 Potassium 4.6 Chloride 100 Carbon Dioxide 33 H Anion Gap 12 BUN 41 H Creatinine 0.93 Estim Creat Clear Calc 49.2 Estimated GFR > 60 Random Glucose 96 Calcium 8.9 B-Natriuretic Peptide 962 H Triglycerides 64 Cholesterol 135 LDL Cholesterol, Calc 81 HDL Cholesterol 42 Respiratory Panel Mix Adenovirus (Rapid PCR) B.pert (TEM-PCR) B.parapertussis DNA PCR C. pneumoniae DNA (PCR) Coronavirus OC43 (PCR) Coronavirus HKU1 (PCR) Coronavirus 229E (PCR) Coronavirus NL63 (PCR) Human Metapneumovir PCR Influenza A (RT-PCR) Influenza B (RT-PCR) M. pneumoniae (PCR) Parainfluenza 1 (PCR) Parainfluenza 2 (PCR) Parainfluenza 3 (PCR) Parainfluenza 4 (PCR) RSV (PCR) Entero/Rhino (PCR) SARS-CoV-2 RNA (RT-PCR) Progress Note: A&P Assessment and plan (1) Acute electrocardiogram changes: Status: Acute (2) Acute hypoxemic respiratory failure: Status: Acute (3) Elevated troponin: Status: Acute (4) New onset of congestive heart failure: Status: Acute Plan EKG changes suggestive of LAD territory disease. These changes are not seen in prior EKG from January. However, troponins are only marginally elevated and changes probably not acute, more so subacute. Cardiac BNP is quite high at over 2000. Clinically, not appearing to be in acute heart failure. Echocardiogram with LVEF of 43% with global hypokinesis. Overall, recommend diagnostic cardiac catheterization from cardiac standpoint. We will transfer to [facility] [place] [place]. Patient agrees. Keep on IV heparin drip, aspirin, beta-blockers. We can hold off on statins for now as the LFTs are quite abnormal. That will need to be followed up independently. Discussed with Dr. Cruz. Time Spent With Patient Time: Total time managing care of this patient today ____ minutes. Progress Note: Quality Stroke Does the patient have a stroke diagnosis?: No Procedures Date of Service Date of Service: 06/30/23
[2023-06-30] MEDS: Atorvastatin Calcium 80 MG TABLET PO (10:18)
[2023-06-30] MEDS: Aspirin Enteric Coated 81 MG TABLET.DR PO (10:18)
[2023-06-30] MEDS: Metoprolol Tartrate 25 MG TABLET PO (10:19)
[2023-06-30] MEDS: methADONE HCl 20 MG/2 ML ORAL.CONC 50 MG PO (10:19)
[2023-06-30] MEDS: Nicotine 14 MG PATCH.TD24 TRANSDERMA (10:20)
[2023-06-30] MEDS: 0.9 % Sodium Chloride Flush 3 ML SYRINGE IVFLUSH ×3 (10:22→16:47)
[2023-06-30 10:32] LABS: PTT Heparin Drip 47.1 SEC (53-77.9)
[2023-06-30 11:05] LABS: Alanine Aminotransferase 68 U/L (0-31); Albumin Level 3.3 g/dL (3.5-5.0); Alkaline Phosphatase 161 U/L (39-117); Aspartate Amino Transferase 31 U/L (5-31); Bilirubin Direct 0.2 mg/dL (0.0-0.5); Bilirubin Total 0.2 mg/dL (0.0-1.0); Total Protein 6.3 g/dL (6.5-8.0)
[2023-06-30] MEDS: Heparin Sodium,Porcine/1/2NS 25,000 UNIT/250 ML IV.SOLN 12.04 UNIT IVCONT (12:59)
--- NOTE | 2023-06-30 13:59 | MHC.CM.PN ---
PT TRANSFERRING TO [facility]
--- NOTE | 2023-06-30 16:14 | PM.DS ---
DS: Providers Provider Date of Service: 06/30/23 Date of admission: 06/28/23 16:38 Primary care physician: Tony Correa MD Consults: 06/28/23 16:38 Consult to Cardiology Routine Consulting Provider: [facility] [place] Cardiovascular Services Reason for consultation: new onest chf DS: Diagnosis Discharge Diagnosis (1) Acute electrocardiogram changes: Status: Acute (2) Acute hypoxemic respiratory failure: Status: Acute (3) Elevated troponin: Status: Acute (4) New onset of congestive heart failure: Status: Acute DS: Summary Hospital Course Hospital Course: History of presenting illness: Date of Service: 06/28/23 Attending physician on admission: Jovany Cintron Chief Complaint: martino, cough 67 year old female with history of RADHA noncompliant with cpap, COPD who is a current 1/2-1ppd cigarette smoker with nocturnal hypoxia presented to the ED earliert today for evaluation of shortness of breath. She states she has had progressively worsening MARTINO. She wears 2L supplemental O2 at nighttime but has been wearing it during the day due to her dyspnea. She has also been using albuterol inhaler with increased frequency. Reports productive cough with clear sputum x3 days. Had a sick contact with known URI. No fevers, chills, ST, congestion, abd pain, n/v/d, urinary symptoms, lightheadedness, palpitations, chest pain. Continues smoking 1/2-1 pack cigarettes daily. No etoh use. No illicit drug use. 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 On arrival, oximetry 90% on 2L supplemental O2, vitals otherwise stable. No leukocytosis. Renal function normal. Lytes normal except CO2 32. VBG with ph 7.48, co2 45, hco3 34. AST 98, ALT 95. Initial trop 35.3, BNP 2149. Negtive COVID-19, influenza. cxr shows RLL infiltrate with blunting of R costophrenic angle. In the ED given 40mg IV lasix, ceftriaxone, zithromycin, duoneb, solumedrol. Hospital course: 67 year old female with history of RADHA noncompliant with cpap, COPD who is a current 1/2-1ppd cigarette smoker with nocturnal hypoxia admitted acute hypoxic respiratory failure with elevated troponin, as well as new onset CHF and acute COPD exacerbation. #Acute hypoxemic respiratory failure admitted to telemetry unit treated for acute COPD exacerbation with IV steroids, scheduled and as needed updraft treatment and IV Lasix for acute CHF exacerbation, ABGs were reassuring no acidosis, mild hypercapnia, patient responded well to above treatment, shortness of breath has significantly improved, an echocardiogram showed an EF 43%, grade 1 mild diastolic dysfunction and mild global hypokinesis, her tropes were minimally elevated but she was noted to have T-wave inversions in anterolateral leads multiple repeat EKGs remains unchanged she had normal EKG in January of 2023, she was treated with IV heparin, beta-blockers and aspirin, statins were held, due to elevated LFTs that are now trending down, if noted to have acute coronary syndrome can be placed on statins, LDL is 81 with a total cholesterol 135 patient evaluated by Cardiology and now being transferred to [facility] for diagnostic catheterization. Chronically on 2 L of supplemental oxygen at nighttime. #New onset congestive heart failure with reduced EF and mild diastolic function noted to have elevated BNP of 2149, trended down to 962 with IV Lasix, echo as above. # acute COPD exacerbation treated with IV Solu Medrol, duonebs q4h, albuterol prn and continued on home inhalers #RADHA- non compliant with cpap at home, cpap bedtime. #cigarette smoker -cessation strongly advised, continue nicotine patch 14mg/24h. # prolonged QT likely due to methadone follow EKG. # Is on methadone due to failure to ween from narcotics following knee injury. Time Attestation Discharge coordination time: Greater than 30 minutes Quality: Safe Use of Opioids Does Pt have an Active Cancer Diagnosis on the Problem List?: No Quality: Stroke Does the patient have a stroke diagnosis?: No Physical Exam Vital Signs: Vital Signs: Last Vital Signs Temp 97.8 F 06/30/23 15:38 Pulse 73 06/30/23 15:38 Resp 17 06/30/23 15:38 BP 119/66 06/30/23 15:38 Pulse Ox 93 06/30/23 15:38 O2 Del Method Nasal Cannula 06/30/23 15:38 O2 Flow Rate 2 06/30/23 15:38 Oxygen Flow Rate 2 06/28/23 13:43 BMI result Body Mass Index 23.5 Const: Other: General awake alert x3, resting comfortably in no acute distress. Neck supple, no JVD. CVS regular rate rhythm, Respiratory lungs clear to auscultation, no respiratory distress, no wheeze, no rhonchi. Gastrointestinal abdomen soft, non tender, bowel sounds audible, no guarding , no rigidity. Extremities no edema. Neuro non focal Skin no rash Psych appropriate affect DS: Data Data Completed and Pending Labs on day of discharge: Laboratory Results - last 24 hr 06/29/23 06/30/23 06/30/23 18:55 02:44 06:43 WBC 18.2 H RBC 3.84 L Hgb 11.2 L Hct 35.1 L MCV 91.4 MCH 29.2 MCHC 31.9 RDW 14.5 Plt Count 383 MPV 11.0 Absolute Nucleated RBC 0.000 Nucleated RBC % (auto) 0.0 PT 11.6 INR 1.0 aPTT Heparin Protocol 31.7 L 45.7 L D Sodium 140 Potassium 4.6 Chloride 100 Carbon Dioxide 33 H Anion Gap 12 BUN 41 H Creatinine 0.93 Estim Creat Clear Calc 49.2 Estimated GFR > 60 Random Glucose 96 Calcium 8.9 Total Bilirubin 0.2 Direct Bilirubin 0.2 AST 31 ALT 68 H Alkaline Phosphatase 161 H B-Natriuretic Peptide 962 H Total Protein 6.3 L Albumin 3.3 L Triglycerides 64 Cholesterol 135 LDL Cholesterol, Calc 81 HDL Cholesterol 42 06/30/23 09:50 WBC RBC Hgb Hct MCV MCH MCHC RDW Plt Count MPV Absolute Nucleated RBC Nucleated RBC % (auto) PT INR aPTT Heparin Protocol 47.1 L Sodium Potassium Chloride Carbon Dioxide Anion Gap BUN Creatinine Estim Creat Clear Calc Estimated GFR Random Glucose Calcium Total Bilirubin Direct Bilirubin AST ALT Alkaline Phosphatase B-Natriuretic Peptide Total Protein Albumin Triglycerides Cholesterol LDL Cholesterol, Calc HDL Cholesterol Preliminary micro results at discharge 06/28/23 17:50 Blood Culture - Preliminary Blood - Venous No growth after 24 hours. 06/28/23 17:50 Blood Culture - Preliminary Blood - Venous No growth after 24 hours. Discharge Plan Discharge Anticipated Discharge Date/Time: 06/30/23 10:44 Patient Disposition: er Acute [facility] Discharge Diagnosis: Abnormal EKG Acute hypoxic respiratory failure Acute mild systolic heart failure Referrals: Tony Correa MD [Primary Care Provider] - 1 Week Discharge Medications: New guaifenesin 100 mg/5 mL Liquid 200 mg PO Q4H PRN (Reason: Cough) Qty: 473 0RF acetaminophen 325 mg Tablet 650 mg PO Q6H PRN (Reason: Pain, Mild (Pain Scale 1-3)) Qty: 30 0RF aspirin 81 mg Tablet,Delayed Release (Dr/Ec) 81 mg PO DAILY Qty: 30 0RF heparin(porcine) in 0.45% NaCl 25,000 unit/250 mL Parenteral Solution 25,000 unit continuous IV infusion .Q0M Qty: 6000 0RF nicotine 14 mg/24 hr Patch 24 Hour 14 mg transdermal DAILY Qty: 30 0RF albuterol sulfate 2.5 mg /3 mL (0.083 %) Solution For Nebulization 2.5 mg inhalation Q2H PRN (Reason: Shortness Of Breath/Wheezing) Qty: 90 0RF ipratropium-albuterol 0.5 mg-3 mg(2.5 mg base)/3 mL Solution For Nebulization 3 ml inhalation RQ4H WHILE AWAKE Qty: 90 0RF metoprolol tartrate 25 mg tablet 12.5 mg PO BID Qty: 60 0RF prednisone 10 mg Tablet 10 mg PO DAILY Qty: 5 0RF Continued methadone 10 mg/mL Concentrate 50 mg PO DAILY Trelegy Ellipta 200-62.5-25 mcg blister with device 1 inh inhalation DAILY Rx Instructions: INHALE 1 PUFF BY MOUTH EVERY DAY Discharge Orders: Discharge Order (Routine); Ordered 06/30/23 Ordered By: Juan Cruz Diet: Low fat, low cholesterol Activity on Discharge: bedrest Stand Alone Forms: Patient Portal Discharge page Care Plan Goals: Transferred to [facility] for diagnostic catheterization due to abnormal EKG with anterior lateral T-wave inversions Continue IV heparin, aspirin, low-dose beta blockers statins held due to elevated LFTs may start statins if noted to have acute coronary syndrome since LFTs trending down LDL 81 Health Concerns: Tobacco use disorder Take all home medications Plan of Treatment: Outpatient follow-up with primary care physician and enterprise infrastructure architect Assessment: As above
[2023-07-03 06:14] LABS: Legionella Ag Urine Not Detected (Not Detected)
[2023-07-03 06:44] LABS: Strep Pneumo Ag urine Not Detected (Not Detected)
== END 2023-06-30 17:02 | disposition short-term general hospital (02) | DRG 291 ==
LOC: HO.ED 16:26 → HO.EDOVER 17:02 → HO.IMC 06-29 07:46
PROVIDERS: Internal Medicine; Admitting Provider Physician Assistant; Emergency Provider Emergency Medicine; PCP Internal Medicine; Visit Provider Hospitalist
DX: I50.21 Acute systolic (congestive) heart failure (principal); J18.9 Pneumonia, unspecified organism; J96.01 Acute respiratory failure with hypoxia; J44.0 Chronic obstructive pulmonary disease with (acute) lower respiratory infection; F11.20 Opioid dependence, uncomplicated; J44.1 Chronic obstructive pulmonary disease with (acute) exacerbation; G47.33 Obstructive sleep apnea (adult) (pediatric); R94.31 Abnormal electrocardiogram [ECG] [EKG]; F17.210 Nicotine dependence, cigarettes, uncomplicated; Z20.822 Contact with and (suspected) exposure to COVID-19; Z91.199 Patient's noncompliance with other medical treatment and regimen due to unspecified reason; Z71.6 Tobacco abuse counseling; Z79.899 Other long term (current) drug therapy
CPT/HCPCS: 36415; 71045; 80048; 80061; 80076; 82803; 83605; 83880; 84484; 85025; 85027; 85610; 85730; 87040; 87449; 87502; 87633; 87635; 87899; 93005; 93306; 94640; 94660; 99285; J0456; J0696; J1644; J1650; J1940; J2920; J2930; J3475; Q9957

== ENCOUNTER 2023-06-28 16:38 | Outpatient (BNV) | payer MEDICARE, SELFPAY | END 2023-06-30 09:12 | PROVIDERS: Admitting Provider Physician Assistant; Emergency Provider Emergency Medicine; PCP Internal Medicine; Visit Provider Internal Medicine | DX: R94.31 Abnormal electrocardiogram [ECG] [EKG] (principal) | CPT/HCPCS: 93010 ==

== ENCOUNTER 2023-06-28 16:38 | Outpatient (BNV) | payer MEDICARE, MEDICAID, SELFPAY | END 2023-06-29 08:55 | PROVIDERS: Admitting Provider Physician Assistant; Emergency Provider Emergency Medicine; PCP Internal Medicine; Visit Provider Internal Medicine | DX: R94.31 Abnormal electrocardiogram [ECG] [EKG] (principal); I50.9 Heart failure, unspecified | CPT/HCPCS: 93010; 93306 ==

== ENCOUNTER → 2023-06-28 16:38 | Outpatient (BNV) | payer MEDICARE, MEDICAID, SELFPAY | PROVIDERS: Admitting Provider Physician Assistant; Emergency Provider Emergency Medicine; Visit Provider Physician Assistant | DX: J96.01 Acute respiratory failure with hypoxia (principal); I50.9 Heart failure, unspecified; J44.1 Chronic obstructive pulmonary disease with (acute) exacerbation; R94.31 Abnormal electrocardiogram [ECG] [EKG]; R79.89 Other specified abnormal findings of blood chemistry | CPT/HCPCS: 99223; 99233; 99239 ==

== ENCOUNTER → 2023-06-28 16:38 | Outpatient (BNV) | payer MEDICARE, MEDICAID, SELFPAY | PROVIDERS: Admitting Provider Physician Assistant; Emergency Provider Emergency Medicine; Visit Provider Internal Medicine | DX: R94.31 Abnormal electrocardiogram [ECG] [EKG] (principal); J96.01 Acute respiratory failure with hypoxia; R79.89 Other specified abnormal findings of blood chemistry; I50.9 Heart failure, unspecified | CPT/HCPCS: 93010; 99223; 99233 ==

== ENCOUNTER → 2023-07-01 23:59 | Outpatient (BNV) | payer MEDICARE, MEDICAID, SELFPAY | PROVIDERS: PCP Internal Medicine; Visit Provider Internal Medicine Cardiovascular Disease | DX: I21.4 Non-ST elevation (NSTEMI) myocardial infarction (principal) | CPT/HCPCS: 93458; 99152 ==

== ENCOUNTER 2023-09-07 14:16 | Outpatient (AMB) | payer MEDICARE, MEDICAID, SELFPAY ==
[2023-09-07 14:21] VITALS: BP 116/68; PULSE 74; BMI 24.3
--- NOTE | 2023-09-07 14:21 | A.OFFVIS_ITS ---
Intake Vital Signs 09/07/23 14:21 Height 5 ft 3 in Weight 137 lb BMI 24.3 BP 116/68 Blood Pressure Location Lt brachial Position Sitting Pulse 74 Pulse Source Pulse Oximeter Intake Visit Reasons: [facility]/2[facility]5/New onset CHF, Pneumonia, hypoxia Intake Note: PT is here for [facility] d/c new on set CHF PT is feeling much better as of today no chest pain Allergies No Known Allergies Allergy (Verified 06/28/23 14:38) Medication List - Last Reconciled 09/08/23 by Anabelle Beckett NP acetaminophen 650 mg PO Q6H PRN albuterol sulfate 2.5 mg (3 mL) inhalation Q2H PRN [id number] 200-62.5-25 mcg (Trelegy Ellipta) 1 inh inhalation DAILY furosemide 40 mg PO DAILY guaifenesin 200 mg PO Q4H PRN ibuprofen 600 mg PO BID PRN ipratropium-albuterol 0.5 mg-3 mg(2.5 mg base)/3 mL 3 mL inhalation RQ4H WHILE AWAKE methadone 50 mg PO DAILY metoprolol tartrate 25 mg PO BID nicotine 14 mg transdermal DAILY sacubitril-valsartan 24-26 mg (Entresto) 1 tab PO BID HPI HPI Comments History of Present Illness Details 67-year-old female presents today for a follow-u after being in the hospital for hypoxia, CHF, and pneumonia. She had a cardiac cathetization performed on 07/01/[address] Borges which revealed Nonischemic Cardiomyopathy. She denies chest pains, shortness of breath, or dizziness. She has been doing for walks daily without concern. She avoids salt and has reduced her smoking down to 1 per day. She reports compliance with her medications and daily weights. [facility] Medical History Nonischemic cardiomyopathy Pneumonia Dyspnea Chronic cough Tobacco dependence URI (upper respiratory infection) COPD exacerbation Surgical History (Updated 09/08/23 @ 08:07 by Anabelle Beckett NP) S/P cardiac catheterization History of knee surgery Family History Other HTN (hypertension) Social History Alcohol intake: never Patient Tobacco Use Status: Current everyday Tobacco user Tobacco use type: Cigarette Cigarettes Per Day: 10 Years Smoked: 30 years e-Cigarette/Vaping Use: Never Used service: No Cognitive needs: No Hearing needs: No Vision needs: Yes Review of Systems Const Denies weakness ENT Denies dizziness Card Denies chest pain, Denies chest pain with activity, Denies syncope, Denies rapid heart rate, Denies pedal edema, Denies edema, Denies leg edema, Denies lightheadedness, Denies palpitations, Denies dyspnea, Denies dyspnea on exertion and Denies orthopnea Resp Denies cough, Denies dyspnea and Denies dyspnea on exertion GI Denies hematochezia and Denies change in stool character Musc Denies abnormal gait, Denies muscle cramps, Denies muscle weakness, Denies numbness, Denies radiating pain into limb and Denies tingling Neuro Denies abnormal gait, Denies dizziness, Denies syncope, Denies numbness, Denies tingling and Denies weakness Endo Denies palpitations Physical Exam Vital Signs: Last Vital Signs Pulse 74 09/07/23 14:21 BP 116/68 09/07/23 14:21 BMI result Body Mass Index 24.3 Const General: healthy appearing and no acute distress Orientation/consciousness: patient oriented x3 HEENT Head: Yes normal to inspection Eyes General: appearance normal, both eyes and all related structures Neck Neck: Yes normal visual inspection Chest Chest palpation & inspection: normal inspection of the chest Resp Effort & Inspection: normal respiratory effort Auscultation: clear to auscultation bilaterally Cardio Jugular venous distension: no JVD Palpation: normal PMI Rate: regular rate Rhythm: regular rhythm Heart sounds: S1 normal heart sound present, S2 normal heart sound present, no click, no gallops, no murmurs and no rubs GI Inspection: Yes normal to inspection Palpation (GI): Soft to palpation Skin General skin exam: no rashes or lesions noted Neuro General: patient oriented x3 Extrem General: Yes normal to inspection Psych Appearance: grossly normal Assessment & Plan Assessment & Plan (1) S/P cardiac catheterization: Comment: 07/01/[address] Borges. LMCA normal LAD normal LCx normal RCA normal Nonischemic cardiomyopathy Code(s): Z98.890 - Other specified postprocedural states Plan: Reports no tenderness, fever, chills, or drainage from right radial site. Healed appropriately. Normal coronary arteries as per cardiac catheterization. (2) Nonischemic cardiomyopathy: Code(s): I42.8 - Other cardiomyopathies Plan: Nonischemic cardiomyopathy per cardiac catherization. Echo at [facility] [place] on 07/01/23 showed EF of 20-25%. Basal to mid inferoseptal, inferior wall is akinetic. Mild LV thickness. She is on Entresto now and tolerating it well. Continue. ASA has been stopped. Daily weights and avoidance of salt strongly encouraged. (3) Obstructive sleep apnea: Code(s): G47.33 - Obstructive sleep apnea (adult) (pediatric) Plan: Has not been using CPAP therapy. She reports she needs a new machine and plans to make an appointment with pulmonary. Encouraged. Orders: Orders CA echo limited 1 Month Anabelle Beckett NP I42.8 - Other cardiomyopathies Liver Panel 09/07/23 Anabelle Beckett NP I42.8 - Other cardiomyopathies Basic Metabolic Panel 09/07/23 Anabelle Beckett NP I42.8 - Other cardiomyopathies Medications: Changed From acetaminophen 650 mg (2 x 325 mg) PO Q6H PRN 30 tabs 0RF Pain, Mild (Pain Scale 1-3) To acetaminophen 650 mg PO Q6H PRN Pain, Mild (Pain Scale 1-3) Juan Cruz MD From guaifenesin 200 mg (10 mL) PO Q4H PRN 473 mL 0RF Cough To guaifenesin 200 mg PO Q4H PRN Cough Juan Cruz MD From metoprolol tartrate 12.5 mg (1/2 x 25 mg) PO BID 60 tabs 0RF To metoprolol tartrate 25 mg PO BID Juan Cruz MD Quality Reporting (2019) Adult ([facility] 138/07/15/68) Smoking risk assessment performed?: Yes Patient Tobacco Use Status: Current everyday Tobacco user Coding Level of Care Code Est Pt Level 4 (70342) Diagnoses S/P cardiac catheterization Z98.890 Nonischemic cardiomyopathy I42.8 Obstructive sleep apnea G47.33
== END 2023-09-07 14:55 | disposition home or self-care (01) ==
PROVIDERS: PCP Internal Medicine; Visit Provider Nurse Practitioner
DX: Z98.890 Other specified postprocedural states (principal); I42.8 Other cardiomyopathies; G47.33 Obstructive sleep apnea (adult) (pediatric)
CPT/HCPCS: 99214

== ENCOUNTER 2023-09-07 14:16 | Outpatient (REF) | payer MEDICARE, MEDICAID, SELFPAY ==
[2023-09-07 16:39] LABS: Alanine Aminotransferase 38 U/L (0-31); Albumin Level 4.1 g/dL (3.5-5.0); Alkaline Phosphatase 68 U/L (39-117); Anion Gap 12 (12-20); Aspartate Amino Transferase 31 U/L (5-31); Bilirubin Direct 0.1 mg/dL (0.0-0.5); Bilirubin Total 0.5 mg/dL (0.0-1.0); Blood Urea Nitrogen 33 mg/dL (9-16); Calcium 9.3 mg/dL (8.4-10.2); Carbon Dioxide 32 mmol/L (22-29); Chloride 100 mmol/L (96-108); Estimated Glomerular Filt Rate 40; Glucose Random 94 mg/dL (60-115); Potassium 4.7 mmol/L (3.3-5.1); Sodium 139 mmol/L (135-145)
== END 2023-09-07 14:17 | disposition home or self-care (01) ==
LOC: HO.LAB 14:16
PROVIDERS: PCP Internal Medicine; Visit Provider Nurse Practitioner
DX: I42.8 Other cardiomyopathies (principal); Z98.890 Other specified postprocedural states
CPT/HCPCS: 36415; 80048; 80076; 99212

== ENCOUNTER 2023-11-24 14:03 | Outpatient (AMB) | payer MEDICARE, MEDICAID, SELFPAY ==
--- NOTE | 2023-11-24 14:04 | A.OFFVIS_ITS ---
Vital Signs 11/24/23 14:05 Height 5 ft 3 in Weight 141 lb 1.533 oz BMI 25.0 BP 100/54 L Blood Pressure Location Lt brachial Position Sitting Pulse 85 Intake Visit Reasons: 2 mth f/up echo/ labs Intake Note: 2mo f/u. Pt did not complete Echo. Assistant Store Manager Trainee Required: No Accompanied by: Self / Same As Patient Allergies No Known Allergies Allergy (Verified 06/28/23 14:38) HPI Comments Details: 68-year-old female presents today for a follow-up. She did not get her follow-up echocardiogram performed. She reports her weights have been stable. Within the last week her shortness of breath has gotten worse. She has no chest pains or swelling. [facility] Medical History Nonischemic cardiomyopathy Pneumonia Dyspnea Chronic cough Tobacco dependence URI (upper respiratory infection) COPD exacerbation Surgical History S/P cardiac catheterization History of knee surgery Family History Other HTN (hypertension) Social History Alcohol intake: never Patient Tobacco Use Status: Current everyday Tobacco user Tobacco use type: Cigarette Cigarettes Per Day: 10 Years Smoked: 30 years e-Cigarette/Vaping Use: Never Used service: No Cognitive needs: No Hearing needs: No Vision needs: Yes Review of Systems Const Denies chills, Denies fatigue, Denies fever(s), Denies weight gain and Denies weight loss Card Denies chest pain, Denies leg edema, Denies lightheadedness, Denies palpitations, Denies dyspnea on exertion and Denies orthopnea Resp Denies cough and Denies dyspnea on exertion GI Reports melena, Denies hematochezia and Denies change in stool character Musc Denies muscle weakness and Denies radiating pain into limb Endo Denies fatigue and Denies palpitations Physical Exam Vital Signs: Last Vital Signs Pulse 85 11/24/23 14:05 BP 100/54 L 11/24/23 14:05 BMI result Body Mass Index 25.0 Const General: healthy appearing and no acute distress Orientation/consciousness: patient oriented x3 HEENT Head: Yes normal to inspection Eyes General: appearance normal, both eyes and all related structures Neck Neck: Yes normal visual inspection Chest Chest palpation & inspection: normal inspection of the chest Resp Effort & Inspection: normal respiratory effort Auscultation: clear to auscultation bilaterally Cardio Jugular venous distension: no JVD Palpation: normal PMI Rate: regular rate Rhythm: regular rhythm Heart sounds: S1 normal heart sound present, S2 normal heart sound present, no click, no gallops, no murmurs and no rubs GI Inspection: Yes normal to inspection Palpation (GI): Soft to palpation Skin General skin exam: no rashes or lesions noted Neuro General: patient oriented x3 Extrem General: Yes normal to inspection Psych Appearance: grossly normal Quality Reporting (2019) Adult ([facility] 138/07/15/68) Smoking risk assessment performed?: Yes Patient Tobacco Use Status: Current everyday Tobacco user Assessment & Plan Assessment & Plan (1) Nonischemic cardiomyopathy: Code(s): I42.8 - Other cardiomyopathies Category: Medical Plan Will recheck some lab work. She is going to set up limited echocardiogram. Salt avoidance and daily weights discussed. Continue fursemide at current dose. Also on Entresto and metoprolol. Nonischemic cardiomyopathy per cardiac catherization. Echo at [facility] on 07/01/23 showed EF of 20-25%. Basal to mid inferoseptal, inferior wall is akinetic. Mild LV thickness. Orders: Orders B Type Natriuretic Peptide 11/24/23 I42.8 - Other cardiomyopathies Basic Metabolic Panel 11/24/23 I42.8 - Other cardiomyopathies Coding Level of Care Code Est Pt Level 3 (40752) Diagnoses Nonischemic cardiomyopathy I42.8
[2023-11-24 14:05] VITALS: BP 100/54; PULSE 85; BMI 25.0
== END 2023-11-24 14:33 | disposition home or self-care (01) ==
PROVIDERS: PCP Internal Medicine; Visit Provider Nurse Practitioner
DX: I42.8 Other cardiomyopathies (principal)
CPT/HCPCS: 99213

== ENCOUNTER 2023-11-24 14:03 | Outpatient (REF) | payer MEDICARE, MEDICAID, SELFPAY ==
[2023-11-24 15:51] LABS: Anion Gap 12 (12-20); Blood Urea Nitrogen 32 mg/dL (9-16); Calcium 9.6 mg/dL (8.4-10.2); Carbon Dioxide 32 mmol/L (22-29); Chloride 99 mmol/L (96-108); Estimated Glomerular Filt Rate 39; Glucose Random 90 mg/dL (60-115); Potassium 4.7 mmol/L (3.3-5.1); Sodium 138 mmol/L (135-145)
[2023-11-24 15:53] LABS: B Type Natriuretic Peptide 138 pg/mL (<100)
== END 2023-11-24 14:04 | disposition home or self-care (01) ==
LOC: HO.LAB 14:03
PROVIDERS: PCP Internal Medicine; Visit Provider Nurse Practitioner
DX: I42.8 Other cardiomyopathies (principal)
CPT/HCPCS: 36415; 80048; 83880; 99212

== ENCOUNTER 2024-01-12 10:08 | Outpatient (AMB) | payer MEDICARE, SELFPAY ==
[2024-01-12 10:10] VITALS: BP 126/78; PULSE 81; O2SAT 92; BMI 26.4
--- NOTE | 2024-01-12 10:10 | A.OFFPC_ITS ---
Vital Signs 01/12/24 10:10 Height 5 ft 3 in Weight 149 lb BMI 26.4 BP 126/78 Blood Pressure Location Lt brachial Position Sitting Pulse 81 Pulse Source Pulse Oximeter Pulse Oximetry (%) 92 Oxygen Delivery Method Room Air Intake Visit Reasons: Annual PE Svp Research And Strategic Analysis Required: No Accompanied by: Self / Same As Patient Allergies No Known Allergies Allergy (Verified 01/12/24 10:10) Medication List - Last Reconciled 01/13/24 by Tony Correa MD acetaminophen 650 mg PO Q6H PRN albuterol sulfate 2.5 mg (3 mL) inhalation Q2H PRN amoxicillin 250 mg PO Q6H gqhyidcwavl-hrfyzbskj-skujbduo 200-62.5-25 mcg (Trelegy Ellipta) 1 inh inhalation DAILY furosemide 40 mg PO DAILY hydroxyzine HCl 50 mg PO BID PRN ibuprofen 600 mg PO BID PRN ipratropium-albuterol 0.5 mg-3 mg(2.5 mg base)/3 mL 3 mL inhalation RQ4H WHILE AWAKE methadone 60 mg PO DAILY metoprolol tartrate 25 mg PO BID 90 days nicotine 14 mg transdermal DAILY sacubitril-valsartan 24-26 mg (Entresto) 1 tab PO BID sertraline (Zoloft) 25 mg PO DAILY Tobacco use date assessed: 01/12/24 Fall risk assessment: No Falls in past year Last assessed Fall Risk: 01/12/24 Dental Screening Dental Screen Date: 01/12/24 Did you have a dental visit in the last 12 months?: No Did you have a dental problem in the last 6 months where you did not have access to dental care?: No Was dental information given to patient?: Patient has dentist HPI Annual PE HPI Details COPD; substance abuse on methadone [facility] Medical History (Updated 01/13/24 @ 08:29 by Tony Correa MD) Nonischemic cardiomyopathy Pneumonia Dyspnea Chronic cough Tobacco dependence URI (upper respiratory infection) COPD exacerbation Surgical History S/P cardiac catheterization History of knee surgery Family History Other HTN (hypertension) Social History Housing: Condominium Alcohol intake: never Patient Tobacco Use Status: Former Tobacco user Tobacco use type: Cigarette Cigarettes Per Day: 10 Years Smoked: 30 years e-Cigarette/Vaping Use: Currently Using Second Hand Smoke Exposure: No service: No Current occupational status: employed Cognitive needs: No Hearing needs: No Vision needs: Yes Questionnaire PHQ-9 Over the last 2 weeks, how often have you been bothered by any of the following problems? 1. Little interest or pleasure in doing things: not at all 2. Feeling down, depressed, or hopeless: not at all 3. Trouble falling or staying asleep, or sleeping too much: not at all 4. Feeling tired or having little energy: not at all 5. Poor appetite or overeating: not at all 6. Feeling bad about yourself - or that you are a failure or have let yourself or your family down: not at all 7. Trouble concentrating on things, such as reading the newspaper or watching television: not at all 8. Moving or speaking so slowly that other people could have noticed. Or the opposite - being so fidgety or restless that you have been moving around a lot more than usual: not at all 9. Thoughts that you would be better off or of hurting yourself in some way: not at all Total score: 0 Source: Developed by Drs. Isaiah Jennings, Sania Jeffries, Gibson Martino and colleagues, with an educational lico from [employer]. Thrive Questionnaire Date Thrive assessed: 06/29/23 I am a: Patient What is your living situation today?: I have a steady place to live Within the past 12 months, did the food you bought not last and you didn't have the money to get more?: Never true Within the past 12 months, did you worry whether your food would run out before you got money to buy more?: Never true THRIVE Score: 0 AUDIT C Alcohol Use Questionnaire (AUDIT-C) 1. How often do you have a drink containing alcohol?: Never 2. How many drinks containing alcohol do you have on a typical day when you are drinking?: 1 or 2 (none) 3. How often do you have six or more drinks on one occasion?: Never Total Score: 0 KALYAN-7 AMB Questionnaire KALYAN-7 Date KALYAN - 7 assessed: 01/12/24 Feeling nervous, anxious, or on edge: 0 = Not at all Not being able to stop or control worryin = Not at all Worrying too much about different things: 0 = Not at all Trouble relaxin = Not at all Being so restless that it is hard to sit still: 0 = Not at all Becoming easily annoyed or irritable: 0 = Not at all Feeling afraid as if something awful might happen: 0 = Not at all Total KALYAN-7 score (0-4 normal; 5-9 mild; 10-14 moderate; 15-21 severe): 0 Source: Developed by Drs. Isaiah Jennings, Sania Jeffries, Gibson Martino and colleagues, with an educational lico from [employer]. Review of Systems Const Denies chills, Denies fatigue, Denies headache(s) and Denies weight loss Eyes Denies change in vision, Denies diplopia and Denies eye pain ENT Denies headache(s) Card Denies chest pain, Denies syncope, Denies irregular heart rhythm and Denies dyspnea Resp Denies chest congestion, Denies cough and Denies dyspnea GI Denies abdominal pain, Denies change in stool character, Denies nausea and Denies vomiting Musc Denies deformity and Denies joint swelling Skin/Breast Denies lesions and Denies unusual bruising Neuro Denies syncope and Denies headache(s) Endo Denies fatigue Physical exam (Primary Care) Vital Signs: Last Vital Signs Pulse 81 01/12/24 10:10 BP 126/78 01/12/24 10:10 Pulse Ox 92 01/12/24 10:10 Oxygen Delivery Method Room Air 01/12/24 10:10 BMI result Body Mass Index 26.4 Tobacco/Smoking Status: Tobacco use Status Tobacco use date assessed 01/12/24 01/12/24 10:16 Patient Tobacco Use Status Former Tobacco user 01/12/24 10:16 Tobacco use type Cigarette 01/12/24 10:10 e-Cigarette/Vaping Use Currently Using 01/12/24 10:16 PHQ-9: PHQ-9 Score PHQ-9: Total score 0 01/12/24 10:16 Thrive Assessment: Date of Thrive Assessment Date Thrive assessed 06/29/23 01/12/24 10:10 Const General: cooperative, comfortable, no acute distress and alert Orientation/consciousness: oriented to person, oriented to place and oriented to time HENMT Head: Yes normal to inspection, Yes normocephalic and Yes atraumatic Mouth: Normal oral and palatal mucosa present and tongue normal Throat: Yes posterior oropharynx normal and Yes uvula midline Eyes General: appearance normal, both eyes and all related structures Neck Neck: Yes no lymphadenopathy Thyroid: Thyroid normal Carotids: normal carotid upstroke Chest Chest palpation & inspection: normal inspection of the chest Resp Effort & Inspection: normal respiratory effort Auscultation: clear to auscultation bilaterally Percussion: percussion normal Cardio Jugular venous distension: no JVD Palpation: normal PMI Rate: regular rate Rhythm: regular rhythm Heart sounds: S1 normal heart sound present and S2 normal heart sound present GI Inspection: Yes normal to inspection Palpation (GI): No hepatosplenomegaly present Auscultation: normal bowel sounds General: Yes no CVA tenderness Back/Spine/Pelvis Back: no CVA tenderness Skin General skin exam: no rashes or lesions noted Neuro General: oriented to person, oriented to place and oriented to time Extrem General: Yes no clubbing, cyanosis or edema Assessment and Plan Assessment & Plan (1) Physical exam: Code(s): Z00.00 - Encounter for general adult medical examination without abnormal find ings Plan: due forl abs (2) COPD (chronic obstructive pulmonary disease): Code(s): J44.9 - Chronic obstructive pulmonary disease, unspecified Qualifiers: COPD type: chronic bronchitis Chronic bronchitis type: mixed simple and mucopurulent Qualified Code(s): J41.8 - Mixed simple and mucopurulent chronic bronchitis Plan: stable; same rx Orders: Orders Lipid Panel 01/12/24 Z13.220 - Encounter for screening for lipoid disorders Thyroid Stimulating Hormone 01/12/24 Z13.29 - Encounter for screening for other suspected endocrine disorder Lipid Panel Today Z13.220 - Encounter for screening for lipoid disorders Complete Blood Count Auto Diff 01/12/24 Z13.0 - Encounter for screening for diseases of the blood and blood-forming organs and certain disorders involving the immune mechanism Comprehensive [place]. Panel Fast 01/12/24 Z13.9 - Encounter for screening, unspecified Complete Blood Count Auto Diff Today Z13.0 - Encounter for screening for diseases of the blood and blood-forming organs and certain disorders involving the immune mechanism Comprehensive [place]. Panel Fast Today Z13.9 - Encounter for screening, unspecified Thyroid Stimulating Hormone Today Z13.29 - Encounter for screening for other suspected endocrine disorder Medications: New amoxicillin 250 mg PO Q6H 40 caps 0RF Refilled sertraline (Zoloft) 25 mg PO DAILY 30 tabs 5RF Coding Level of Care Code Est Pt Prev Care >65y(85991) Diagnoses Physical exam Z00.00 Mixed simple and mucopurulent chronic bronchitis J41.8 COPD type: chronic bronchitis Chronic bronchitis type: mixed simple and mucopurulent
== END 2024-01-12 10:27 | disposition home or self-care (01) ==
PROVIDERS: PCP Internal Medicine; Visit Provider Internal Medicine
DX: Z00.00 Encounter for general adult medical examination without abnormal findings (principal); J41.8 Mixed simple and mucopurulent chronic bronchitis
CPT/HCPCS: 99213; 99397

== ENCOUNTER 2024-01-12 10:42 | Outpatient (REF) | payer MEDICARE, MEDICAID, SELFPAY ==
[2024-01-12 11:05] LABS: MANUAL DIFF FLAG NO
[2024-01-12 12:10] LABS: Basophils Percent Auto 0.6 % (0-2); Eosinophils Absolute Auto 0.2 X10*3/uL (0.0-0.4); Eosinophils Percent Auto 3.1 % (0-4); Hemoglobin 11.7 g/dl (12.0-16.0); Imm Gran Abs Auto 0.02 X10*3/uL (0.00-0.03); Imm Gran Pct Auto 0.3 % (0.0-0.4); Lymphocytes Absolute Auto 2.4 X10*3/uL (1.2-4.9); Lymphocytes Percent Auto 35.3 % (20-40); Mean Corpuscular HGB Conc 30.8 g/dl (31.0-35.0); Mean Corpuscular Hemoglobin 28.5 pg (27.0-33.0); Mean Corpuscular Volume 92.5 fL (80.0-98.0); Mean Platelet Volume 10.7 fL (9.4-12.3); Monocytes Absolute Auto 0.5 X10*3/uL (0.1-1.2); Neutrophils Absolute Auto 3.6 x10*3/uL (2.0-8.3); Neutrophils Percent Auto 53.7 % (45-73); Platelet Count 201 X10*3/uL (160-400); Red Blood Count 4.11 X10*6/uL (4.20-5.50); Red Cell Distribution Width 12.9 % (11.0-16.0); White Blood Count 6.7 X10*3/uL (4.8-10.8)
[2024-01-12 12:49] LABS: Alanine Aminotransferase 21 U/L (0-31); Albumin Level 4.2 g/dL (3.5-5.0); Alkaline Phosphatase 62 U/L (39-117); Anion Gap 11 (12-20); Aspartate Amino Transferase 21 U/L (5-31); Bilirubin Total 0.5 mg/dL (0.0-1.0); Blood Urea Nitrogen 23 mg/dL (9-16); Calcium 9.4 mg/dL (8.4-10.2); Carbon Dioxide 31 mmol/L (22-29); Chloride 101 mmol/L (96-108); Cholesterol 213 mg/dL (<200); Estimated Glomerular Filt Rate 46; Glucose Fasting 76 mg/dL (60-99); HDL Cholesterol 59 mg/dL (>40); LDL Cholesterol Calculated 132 mg/dL (<100); Potassium 4.9 mmol/L (3.3-5.1); Sodium 138 mmol/L (135-145); Total Protein 7.2 g/dL (6.5-8.0); Triglycerides 110 mg/dL (<150)
[2024-01-12 13:05] LABS: Thyroid Stimulating Hormone 1.23 uIU/mL (0.32-4.0)
== END 2024-01-12 10:43 | disposition home or self-care (01) ==
LOC: HO.LAB 10:42
PROVIDERS: PCP Internal Medicine; Visit Provider Internal Medicine
DX: Z13.0 Encounter for screening for diseases of the blood and blood-forming organs and certain disorders involving the immune mechanism (principal); Z13.220 Encounter for screening for lipoid disorders; Z13.29 Encounter for screening for other suspected endocrine disorder; Z13.9 Encounter for screening, unspecified
CPT/HCPCS: 36415; 80053; 80061; 84443; 85025

== ENCOUNTER 2024-03-30 09:31 | Outpatient (AMB) | payer MEDICARE, SELFPAY ==
[2024-03-30 09:37] VITALS: BP 128/62; PULSE 80; O2SAT 93
--- NOTE | 2024-03-30 09:37 | MHC.OFFVIS ---
Vital Signs 03/30/24 09:37 Weight 153 lb 3.54 oz BP 128/62 Blood Pressure Location Rt brachial Position Sitting Pulse 80 Pulse Source Pulse Oximeter Pulse Oximetry (%) 93 Oxygen Delivery Method Room Air Intake Visit Reasons: copd Allergies No Known Allergies Allergy (Verified 03/30/24 09:42) Medication List - Last Reconciled 03/30/24 by Catherine Figueredo LPN acetaminophen 650 mg PO Q6H PRN albuterol sulfate 2.5 mg (3 mL) inhalation Q2H PRN cpceayawqov-jsrnjehfd-otnntepl 200-62.5-25 mcg (Trelegy Ellipta) 1 inh inhalation DAILY furosemide 40 mg PO DAILY hydroxyzine HCl 50 mg PO BID PRN ibuprofen 600 mg PO BID PRN ipratropium-albuterol 0.5 mg-3 mg(2.5 mg base)/3 mL 3 mL inhalation RQ4H WHILE AWAKE methadone 60 mg PO DAILY metoprolol tartrate 25 mg PO BID 90 days sacubitril-valsartan 24-26 mg (Entresto) 1 tab PO BID sertraline (Zoloft) 25 mg PO DAILY HPI Comments Details: The patient is a 68-year-old woman with known COPD and tobacco dependency. She recently had a low-dose CT scan of the chest spot of the lung cancer screening program. She received a letter telling her other thing was okay. Otherwise the patient has been complaining of worsening productive cough. She has been out of her Breo and also her Daliresp. While she was in the medications she was feeling better. She went back to smoking. Unfortunately smoking about half pack. The try a patch but she is could not tolerated. She is willing to try the Nicotrol inhaler. I will prescribe it although it is not covered also on her lower dose patch. 05/01/2020 the patient has a sick telephone visit. The patient has been complaining of worsening congestion and shortness of breath. She has been coughing more as well. Is been nonproductive in moderate severity. She had to increase her oxygen to 3 L from 2. Her daughter has been concerned and wanted to take her to the hospital but she refused. There was positive sick contacts in the home but nobody was tested for COVID-19. She also has been complaining of severe headaches and also spinning in some night sweats. I did encourage her to get tested because is sounds that she could have COVID-19 infection. In the meantime will treat her for a respiratory illness in a COPD exacerbation. If her oxygen needs increased further or she develops any worsening conditions she needs to go to the hospital to be further evaluated. 06/17/2021 the patient has a telephone visit today. Patient complains of worsening shortness of breath and chest congestion. Physical is been getting worse in the last several months. She has been on the Breo inhaler with partial response. Unfortunate she has continued to smoke cigarettes. I recommend that we optimize her respiratory therapy by switching her to Trelegy inhaler. She would like to try this at this time. In addition to that we talked about the importance of smoking cessation. She did try the patch in the past. However, she has a hard time sleeping at nighttime. I did recommend that she can take it off prior to better she can sleep better if she should stay with 21 mg does based on the fact she is smoking about a pack a day. Patient is motivated she knows she needs to quit because her symptoms are getting worse. In addition to that the patient has been taking Daliresp. This medication has decrease her COPD exacerbations. She was coming today for visit but she was exposed to her sick grandson with COVID-19. She is going to monitor closely symptoms. She does tend positive and she should call her medical providers in order to see about getting additional COVID-19 therapies. I also personally reviewed her CT scan of the chest that she had back in January 2021 demonstrating stable pulmonary nodules and emphysematous changes. Will follow-up sometime in late fall [address] scan of the chest. 03/30/2024 the patient is here for pulmonary follow-up visit. She has been lost to follow-up for a couple years. He has had worsening cough. Chest congestion. Moderate severity. She has not had any respiratory inhalers to use her therefore she has been bothering them from people. She was able to quit smoking although she did pear picker vaping which is unfortunate. She needs to quit altogether. She is willing to try Chantix. I will send Chantix to the pharmacy. She needs to make sure to talk to her psychiatrist to make sure it is okay with them that she takes Chantix. In the meantime when she starts the medication if she does develop any depressive symptoms she has to stop it and call. She had been responding well to Trelegy will get back on that. As far as the lung cancer screening program she had been participating at [facility]. She has not had any imaging studies in 2020. Therefore, will refer her to a program here at [facility]. She is also dealing with a cardiomyopathy. It is unclear the etiology. She did undergo a cardiac catheterization which was negative which is reassuring. She will continue following closely with Cardiology. Her EF was noted to be about 43%. Hopefully it is transient. Hemodynamically stable today. [facility] Medical History (Updated 03/30/24 @ 19:14 by Reymundo Massey MD) Nonischemic cardiomyopathy Pneumonia Dyspnea Chronic cough Tobacco dependence URI (upper respiratory infection) COPD exacerbation Surgical History S/P cardiac catheterization History of knee surgery Family History Other HTN (hypertension) [facility] Alcohol intake: never Patient Tobacco Use Status: Former Tobacco user Tobacco use type: Cigarette Cigarettes Per Day: 10 Years Smoked: 30 years e-Cigarette/Vaping Use: Currently Using Second Hand Smoke Exposure: No service: No Current occupational status: employed Cognitive needs: No Hearing needs: No Vision needs: Yes Review of Systems Const Denies night sweats ENT Denies change in voice, Denies lip swelling, Denies mouth pain, Reports nasal congestion, Reports nasal discharge and Denies tongue swelling Card Denies chest pain and Reports dyspnea on exertion Resp Reports change in phlegm color, Reports chest congestion, Reports cough, Reports dyspnea on exertion and Reports wheezing GI Denies abdominal pain Musc Denies no additional complaints Neuro Denies Neuro-related abnormal movements Psych Denies no additional complaints Clint/Lymph Denies easy bleeding and Denies lymphadenopathy Aller/Immun Denies lip swelling, Denies tongue swelling and Reports wheezing Physical Exam Vital Signs: Last Vital Signs Pulse 80 03/30/24 09:37 BP 128/62 03/30/24 09:37 Pulse Ox 93 03/30/24 09:37 Oxygen Delivery Method Room Air 11/07/24 09:37 Const General: healthy appearing and no acute distress Orientation/consciousness: patient oriented x3 HEENT Head: Yes normal to inspection Eyes General: appearance normal, both eyes and all related structures Neck Neck: Yes normal visual inspection Chest Chest palpation & inspection: normal inspection of the chest Resp Effort & Inspection: normal respiratory effort Auscultation: rhonchi, wheezes and diminished lung sounds Cardio Jugular venous distension: no JVD Palpation: normal PMI Rate: regular rate Rhythm: regular rhythm Heart sounds: S1 normal heart sound present, S2 normal heart sound present, no click, no gallops, no murmurs and no rubs GI Inspection: Yes normal to inspection Palpation (GI): Soft to palpation Skin General skin exam: no rashes or lesions noted Neuro General: patient oriented x3 Extrem General: Yes normal to inspection Psych Appearance: grossly normal Quality Reporting (2019) Adult ([facility] 13807/15/68) Smoking risk assessment performed?: Yes Patient Tobacco Use Status: Former Tobacco user Assessment & Plan Assessment & Plan (1) COPD (chronic obstructive pulmonary disease): Code(s): J44.9 - Chronic obstructive pulmonary disease, unspecified Category: Medical Qualifiers: COPD type: chronic bronchitis Chronic bronchitis type: mixed simple and mucopurulent Qualified Code(s): J41.8 - Mixed simple and mucopurulent chronic bronchitis (2) Tobacco dependence: Comment: now vaping Code(s): F17.200 - Nicotine dependence, unspecified, uncomplicated Category: Medical (3) Chronic cough: Code(s): R05.3 - Chronic cough Category: Medical (4) Dyspnea: Code(s): R06.00 - Dyspnea, unspecified Category: Medical Qualifiers: Dyspnea type: dyspnea on exertion Qualified Code(s): R06.00 - Dyspnea, unspecified Plan Trelegy 200 tobacco cessation: Will start chantix. She will report to her psychiatrist stopped Daliresp low-dose CT scan doxycycline x 10 days follow-up after 6 months Orders: Referrals Lung Cancer Screening Referral F17.200 - Nicotine dependence, unspecified, uncomplicated Medications: New varenicline (Chantix Starting Month Box) PO PER PKG DIR 42 ea 0RF doxycycline monohydrate 100 mg PO BID 28 tabs 0RF 14 days albuterol sulfate 90 mcg/actuation 2 inhalations inhalation Q6H PRN 8.5 grams 12RF shortness of breath or wheezing 30 days J44.9 - Chronic obstructive pulmonary disease, unspecified varenicline (Chantix Continuing Month Box) 1 mg PO BID 56 tabs 3RF 28 days Changed From gczhfyzekwg-uzptaqflu-tngiwuwy 200-62.5-25 mcg (Trelegy Ellipta) INHALE 1 PUFF BY MOUTH EVERY DAY 1 inh inhalation DAILY To okjdcacjixh-ovfadyvdj-musfywlf 200-62.5-25 mcg (Trelegy Ellipta) INHALE 1 PUFF BY MOUTH EVERY DAY 1 inh inhalation DAILY 60 ea 11RF 30 days Coding Level of Care Code Est Pt Level 4 (88030) Diagnoses Mixed simple and mucopurulent chronic bronchitis J41.8 COPD type: chronic bronchitis Chronic bronchitis type: mixed simple and mucopurulent Tobacco dependence F17.200 Chronic cough R05.3 Dyspnea on exertion R06.00 Dyspnea type: dyspnea on exertion Time Spent (min) 17
== END 2024-03-30 10:00 | disposition home or self-care (01) ==
LOC: HO.HPS 09:32
PROVIDERS: PCP Internal Medicine; Visit Provider Hospitalist
DX: J41.8 Mixed simple and mucopurulent chronic bronchitis (principal); F17.200 Nicotine dependence, unspecified, uncomplicated; R05.3 Chronic cough; R06.00 Dyspnea, unspecified
CPT/HCPCS: 99214

== ENCOUNTER → 2024-03-30 09:31 | Outpatient (BNVA) | payer MEDICARE, SELFPAY | PROVIDERS: PCP Internal Medicine; Visit Provider Hospitalist | DX: J41.8 Mixed simple and mucopurulent chronic bronchitis (principal); R05.3 Chronic cough; R06.00 Dyspnea, unspecified; F17.290 Nicotine dependence, other tobacco product, uncomplicated | CPT/HCPCS: 99212 ==

== ENCOUNTER 2024-08-25 14:57 | Outpatient (AMB) | payer MEDICARE, SELFPAY ==
--- NOTE | 2024-08-25 15:05 | A.OFFVIS_ITS ---
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 Accompanied by: Self / Same As Patient Allergies No Known Allergies Allergy (Verified 03/30/24 09:42) Medication List - Last Reconciled 08/25/24 by Zeferino Chapman NP acetaminophen 650 mg PO Q6H PRN albuterol sulfate 2.5 mg (3 mL) inhalation Q2H PRN albuterol sulfate 90 mcg/actuation 2 inhalations inhalation Q6H PRN 30 days doxycycline monohydrate 100 mg PO BID 14 days snmpijhwexg-fsgfqpjeb-tpujarmy 200-62.5-25 mcg (Trelegy Ellipta) 1 inh inhalation DAILY 30 days furosemide 40 mg PO DAILY hydroxyzine HCl 50 mg PO BID PRN ibuprofen 600 mg PO BID PRN ipratropium-albuterol 0.5 mg-3 mg(2.5 mg base)/3 mL 3 mL inhalation RQ4H WHILE AWAKE methadone 60 mg PO DAILY metoprolol tartrate 25 mg PO BID 90 days sacubitril-valsartan 24-26 mg (Entresto) 1 tab PO BID sertraline (Zoloft) 25 mg PO DAILY varenicline tartrate (Chantix Starting Month Box) PO PER PKG DIR varenicline tartrate (Chantix Continuing Month Box) 1 mg PO BID 28 days HPI Comments Details: This is a 68-year-old female patient presenting for an office visit with complaints of shortness of breath. Patient with a history of COPD, sleep apnea, and cardiomyopathy. Patient was previously seen in the office following hospital admission back in June of 2023 for congestive heart failure with an EF of 43% and mild global hypokinesis. She was subsequently transferred to [facility] for cardiac catheterization which showed no significant coronary artery disease, however, patient did have an echo there that showed an EF of 20-25%. A repeat echo was scheduled but the patient never completed it. Today , the patient reports worsening shortness of breath over the last couple of weeks, primarily with exertion, such as walking up a flight of stairs. She denies any associated symptoms like exertional chest pain, palpitations, dizziness, fatigue, orthopnea, PND, leg edema, presyncope, or syncope. Patient states that she has been compliant with all her medications. The patient does note that she was a heavy smoker in the past but successfully quit. However, she has unfortunately taken up vaping. [facility] Medical History Personal history of nicotine dependence Nonischemic cardiomyopathy Pneumonia Dyspnea Chronic cough Surgical History History of carpal tunnel surgery of left wrist S/P cardiac catheterization History of knee surgery Family History Other HTN (hypertension) Social History Housing: [facility] Alcohol intake: never Patient Tobacco Use Status: Former Tobacco user Tobacco use type: Cigarette Cigarettes Per Day: 10 Years Smoked: 30 years e-Cigarette/Vaping Use: Currently Using Second Hand Smoke Exposure: No service: No Current occupational status: employed Cognitive needs: No Hearing needs: No Vision needs: Yes Review of Systems Const Denies chills, Denies fatigue, Denies fever(s), Denies frequent falls, Denies weakness, Denies weight gain and Denies weight loss ENT Denies dizziness Card Denies chest pain, Denies leg edema, Denies lightheadedness, Denies palpitations, Denies dyspnea and Denies dyspnea on exertion Resp Denies cough, Denies dyspnea and Denies dyspnea on exertion GI Denies hematochezia Musc Denies abnormal gait, Denies muscle weakness, Denies numbness, Denies radiating pain into limb and Denies tingling Neuro Denies abnormal gait, Denies dizziness, Denies frequent falls, Denies numbness, Denies tingling and Denies weakness Endo Denies fatigue and Denies palpitations Physical Exam Vital Signs: Last Vital Signs Pulse 71 08/25/24 15:07 BP 110/60 08/25/24 15:07 BMI result Body Mass Index 32.1 Const General: cooperative, healthy appearing, comfortable and no acute distress Orientation/consciousness: patient oriented x3 HEENT Head: Yes normal to inspection Neck Neck: Yes normal visual inspection, Yes trachea midline and Yes supple Chest Chest palpation & inspection: normal inspection of the chest Resp Effort & Inspection: normal respiratory effort Auscultation: clear to auscultation bilaterally, no crackles, no rales, no rhonchi and no wheezes Cardio Jugular venous distension: no JVD Palpation: normal PMI Rate: regular rate Rhythm: regular rhythm Heart sounds: S1 normal heart sound present, S2 normal heart sound present, no click, no gallops, no murmurs and no rubs Peripheral pulses: Peripheral pulses 2+ throughout GI Inspection: Yes normal to inspection Palpation (GI): Soft to palpation Auscultation: normal bowel sounds Skin General skin exam: no rashes or lesions noted Neuro General: patient oriented x3 Extrem General: Yes normal to inspection, No no pedal edema and No calf tenderness Psych Appearance: grossly normal Mental Status: mental status grossly normal Speech and movement: Normal speech and movement present Assessment & Plan Assessment & Plan (1) Dyspnea: Code(s): R06.00 - Dyspnea, unspecified Category: Medical Qualifiers: Dyspnea type: dyspnea on exertion Qualified Code(s): R06.00 - Dyspnea, unspecified Plan: Patient does have chronic shortness of breath however due to the reports of worsening symptoms especially with exertion, we will pursue a myocardial perfusion study to look for ischemic changes. Patient is unsure if she is able to walk on the treadmill. If unable, we can switch to [employer]. (2) S/P cardiac catheterization: Comment: (LMCA, LAD, LCx and RCA normal - Nonischemic cardiomyopathy - Dr. Borges 07/01/23) Code(s): Z98.890 - Other specified postprocedural states Category: Surgical Plan: 07/01/2023-underwent cardiac catheterization with Dr. Borges at [facility] that showed no significant coronary artery disease. Most recent LDL at 132, not within goal. However patient is unsure if this was fasting or not. We will repeat labs with a goal of LDL less than 70. In case elevated on repeat labs, we will start her on statin therapy. Patient understanding of this. (3) Nonischemic cardiomyopathy: Code(s): I42.8 - Other cardiomyopathies Category: Medical Plan: 06/29/2023-echo study here showed low EF at 43%. However, on 07/01/2023 patient went another echo study at [facility] that showed an EF between 20-25%. Patient had a repeat echo that was never completed. We will get a repeat echo. Patient should continue with her neurohormonal therapy including furosemide, m etoprolol, Entresto. Advised heart healthy diet, regular exercise, losing weight, and smoking cessation. We will follow up with the patient following completion of the test. In the interim, advised patient to seek ER care in case of exertional chest pain not resolved with rest. Patient will call the office with any concerns or change in symptoms. This note was generated using voice recognition software. While every effort has been made to ensure accuracy and proper digital controls technical officer, there may be occasional errors that could affect the content or meaning of the described symptoms. Orders: Orders CA echo transthoracic complete Today R06.00 - Dyspnea, unspecified CA stress test Today R06.00 - Dyspnea, unspecified NM cardiolite stress test Today R06.00 - Dyspnea, unspecified Coding Level of Care Code Est Pt Level 4 (80553) Complex EM visit Add On G2211 Diagnoses Dyspnea on exertion R06.00 Dyspnea type: dyspnea on exertion S/P cardiac catheterization Z98.890 Nonischemic cardiomyopathy I42.8 Time Spent (min) 32 Comment Time spent in reviewing the chart, test results, assessment, counseling and documentation.
[2024-08-25 15:07] VITALS: BP 110/60; PULSE 71; BMI 32.1
== END 2024-08-25 15:56 | disposition home or self-care (01) ==
LOC: HO.HCS 14:57
PROVIDERS: PCP Internal Medicine
DX: R06.00 Dyspnea, unspecified (principal); Z98.890 Other specified postprocedural states; I42.8 Other cardiomyopathies
CPT/HCPCS: 99214; G2211

== ENCOUNTER → 2024-08-25 14:57 | Outpatient (BNVA) | payer MEDICARE, SELFPAY | PROVIDERS: PCP Internal Medicine | DX: I42.8 Other cardiomyopathies (principal); R06.00 Dyspnea, unspecified; Z98.890 Other specified postprocedural states | CPT/HCPCS: 99212 ==

== ENCOUNTER 2024-12-08 09:21 | Outpatient (AMB) | payer MEDICARE, SELFPAY ==
--- NOTE | 2024-12-08 07:34 | A.OFFVIS_ITS ---
Intake Visit Reasons: Former Smoker Allergies No Known Allergies Allergy (Verified 03/30/24 09:42) HPI HPI Former Smoker: Details: Initial visit for this 69yo smoker with a 50PYH. Patient started smoking at age 16 for 50 years at 1ppd. Quit 3 years ago (2021) and is currently vaping . Denies marijuana use. Denies second hand smoke exposure. Denies exposure to chemicals or substances like asbestos. . Denies known family history of lung cancer. Denies personal history of cancers. Denies chest CT in last year. . Denies recent travel outside the [place]. Denies recent respiratory illness or recent hospitalization for respiratory issues. Denies testing positive for COVID. Admits receiving COVID Vaccine. . Does report some increased dyspnea with walking - during this hot weather. Followed by pulmonary Dr. Massey. Denies fever, chills, new/worsening cough, hemoptysis, hoarseness or dysphagia. Denies significant chest pain, significant dyspnea or unintentional weight loss. Patient Lung Cancer Screening Questionnaire reviewed with patient by provider. . Shared Decision Making Completed. Patient meets criteria. Discussed in detail with patient, the risk vs benefit of LDCT screening. Patient consents to proceed with scan. Discussed smoking cessation. [facility] Medical History (Updated 12/08/24 @ 09:29 by Aretha Hoffman PA-C) Personal history of nicotine dependence Nonischemic cardiomyopathy Pneumonia Dyspnea Chronic cough Surgical History History of carpal tunnel surgery of left wrist S/P cardiac catheterization History of knee surgery Family History Other HTN (hypertension) Social History (Updated 12/08/24 @ 09:35 by Aretha Hoffman PA-C) Housing: Condominium Alcohol intake: never Patient Tobacco Use Status: Former Tobacco user Tobacco use type: Cigarette Years Smoked: (onset 16yo, 1ppd x 50yrs, 50pyh quit 2021 - now vaping) e-Cigarette/Vaping Use: Currently Using Second Hand Smoke Exposure: No service: No Current occupational status: employed Cognitive needs: No Hearing needs: No Vision needs: Yes Assessment & Plan Assessment & Plan (1) Personal history of nicotine dependence: Comment: (onset 16yo, 1ppd x 550yrs, quit 3yrs ago in 2021 - now vaping) Code(s): Z87.891 - Personal history of nicotine dependence Category: Medical Plan: - SDM visit completed today in office. - Patient meets criteria for LDCT for lung cancer screening purposes and is asymptomatic. - Smoking cessation counseling offered. Patients can always call [phone]. - Will arrange for a LDCT scan of the chest for screening purposes at [facility]. - Risks, benefits, and alternatives were discussed in detail and the patient agrees to proceed. - Risks discussed include but are not limited to: radiation exposure, anxiety during testing and while awaiting results, false negatives, false positives and possibility of additional intervention such as further imaging or surgical procedures for benign disease. - Benefits are obviously detection of lung cancer at an early stage which can lead to improved outcomes. - Discussed the importance of screening program compliance with adherence to yearly LDCT scan as scheduled - or sooner interval scans for personalized screening regimen. - Discussed follow up plan. Our office will send a letter discussing results and if needed set up phone call and office visit based on CT findings. - Patient educated on results categorization and the management decisions for suspicious findings potentially found on the screening LDCT scan. Any patient with a Lung RADS score of 3 or 4 will be reviewed by a multidisciplinary team at [facility] to form a plan of action in regards to scan findings. - If further work up is warranted for a suspicious lung finding this will be followed by the Lung Cancer Screening program in conjunction with the Thoracic Surgery Department at [facility]. - A copy of the office note and LDCT will be sent to the patient's PCP - as well as documentation on any associated further plans of care. - Incidental findings on LDCT are the PCP's responsibility. These findings are indicated with an S finding on the LDCT Assessment. A note discussing the findings will be sent to the PCP who is then responsible for further management. - All questions answered.? Coding Level of Care Code Lung Cancer Screening G0296 Diagnoses Personal history of nicotine dependence Z87.891
== END 2024-12-08 10:06 | disposition home or self-care (01) ==
LOC: HO.HPS 09:21
PROVIDERS: PCP Internal Medicine; Referring Provider Hospitalist; Visit Provider Physician Assistant Medical
DX: Z87.891 Personal history of nicotine dependence (principal)
CPT/HCPCS: G0296

== ENCOUNTER 2024-12-08 09:37 | Outpatient (REF) | payer MEDICARE, SELFPAY ==
--- NOTE | ~2024-12-08 | CT_ITS ---
CLINICAL HISTORY: Z87.891 - Personal history of nicotine dependence CT lung cancer screening (LDCT) Comparison: CR/SR - XR CHEST 2 VIEWS - 06/28/23 14:31 EST Technique: Axial CT images of the chest using low-dose technique. Referring provider counseled the patient on shared decision-making for LDCT screening. Additional counseling was provided on smoking cessation. Effective radiation dose total: DLP 36.9 mGycm, CTDIvol 1.1 mGy. Findings: Lung: Mild centrilobular emphysema of the upper lobes. No acute process. Scattered pulmonary parenchymal scars of right middle lobe, lingula, bilateral lower lobes. Benign calcified micronodule left upper lobe on image 63, series 6. Coronary artery calcifications: Mild Limited upper abdomen: Isodense exophytic lesions bilateral renal upper pole up to 1.5 cm. Pancreatic atrophy noted. Others: None Impression: 1. LungRADS 1: Negative exam. Continue annual screening with low dose Chest CT in 12 months. 2. Bilateral renal upper pole exophytic lesions, perhaps cysts, recommend renal ultrasound. ##L1## Category 1: Normal; continue annual screening Category 2: Benign appearance or behavior, continue annual screening Category 3: Probably benign, [address] recommended Category 4A: Suspicious, [address] recommended; may consider PET/CT Category 4B: Suspicious, Additional diagnostics and/or tissue sampling recommended Category 4X: Suspicious, Additional diagnostics and/or tissue sampling recommended Category 0: Recalls (incomplete screen due to Incomplete coverage, Noise, Respiratory motion, Expiration, Obscured by acute abnormality) This document has been electronically signed by: Adore Og MD on 12/08/2024 13:28:01
== END 2024-12-08 09:38 | disposition home or self-care (01) ==
LOC: HO.CT 09:37
PROVIDERS: PCP Internal Medicine; Visit Provider Physician Assistant Medical
DX: Z12.2 Encounter for screening for malignant neoplasm of respiratory organs (principal); Z87.891 Personal history of nicotine dependence
CPT/HCPCS: 71271; G0296

== ENCOUNTER → 2024-12-08 09:38 | Outpatient (BNV) | payer MEDICARE, SELFPAY | PROVIDERS: PCP Internal Medicine; Visit Provider Radiology Diagnostic Radiology | DX: Z87.891 Personal history of nicotine dependence (principal) | CPT/HCPCS: 71271 ==

== ENCOUNTER → 2024-12-18 12:46 | Outpatient (REF) | payer MEDICARE, SELFPAY ==
--- NOTE | 2024-12-18 12:48 | CA_ITS ---
Transthoracic Echocardiogram Patient (Last, First, Middle): Elizabeth Fountain, Gender: Female Date of : 1955 Age: 69 Procedure Date: 12/18/2024 Procedure Type: Transthoracic Echocardiogram Location: OP Height: 160.02 cm Weight: 82.1 kg BSA: 1.85 m2 Heart Rate: bpm BP: 110 / 60 mmHg Party Plan Sales Director: [place] Referring MD: Zeferino Chapman NP Technology Project Manager: Avel Guerrero MD Symptoms: R06.00 - Dyspnea, unspecified Study Quality: Adequate ECG Rhythm: Sinus Conclusions: - 1. Normal LV ejection fraction of 65-70% with grade 1 diastolic dysfunction 2. Normal cardiac valvular Dopplers 3. Normal RV systolic pressure 4. No gross pericardial effusion Findings Left Ventricle Normal left ventricular size, thickness, and systolic function. The visually estimated ejection fraction is between 65-70%. Spectral Doppler is indicative of an impaired relaxation filling pattern. E/E prime ratio is <8, consistent with normal filling pressures. Evidence suggests grade I (mild) diastolic dysfunction. Right Ventricle Normal right ventricular cavity size and systolic function. Atria Both atria are normal in size. There is no evidence of interatrial shunt. Aortic Valve Normal aortic valve structure and function. There is no aortic valve stenosis. There is no aortic valve regurgitation. Mitral Valve Normal mitral valve structure and function. There is trace mitral valve regurgitation. There is no mitral valve stenosis. Pulmonic Valve The pulmonic valve is likely normal. Tricuspid Valve There is trace tricuspid valve regurgitation. The right ventricular systolic pressure is 28 mmHg. Normal right atrial pressure. There is no evidence of pulmonary hypertension. Great Vessels All visible segments of the aorta are normal in size. The pulmonary artery was not well visualized. Venous The inferior vena cava is mildly dilated and collapses greater than 50% with inspiration. Pericardium/Pleural There is no evidence of pericardial effusion. Prior Study Comparison Changes noted compared to prior study dated: 06/29/2023. LV ejection fraction has improved Measurements 2D Linear Measurements IVSd: 0.93 0.6-0.9/0.6-1.0 cm LVIDd: 4.91 3.9-5.3/4.2-5.9 cm LVIDd Index: 2.65 2.4-3.2/2.2-3.1 cm/m2 LVIDs: 3.39 2.0-3.6 cm LVPWd: 0.86 0.7-1.1 cm LA Diam: 3.00 2.7-3.8/3.0-4.0 cm LAIDs Index: 1.62 1.5-2.3 cm/m2 LV Mass: 189.41 67-162/88-224 g LV Mass Index: 102.38 43-95/49-115 g/m2 LVOT Diam: 2.00 3.0+(-)1.3 cm 2D Systolic Function EF 4C: 65.30 >55% EF 2C: 68.70 >55% EF BiP: 66.10 >55% Mitral Valve MV Pk E: 0.70 MV PK A: 0.66 MV Decel Time: 284.00 E/A: 1.10 E'Lateral: 11.20 E'Medial: 9.68 E/E' Med: 7.30 E/E' Lat: 6.30 PHT: 83.00 MVA PHT: 2.65 Decel Dolores: 2.48 Aortic Valve AoV Pk Jamaal: 1.44 AoV Mn Jamaal: 1.03 AoV VTI: 0.31 AoV Pk Grad: 8.00 Aov Mn Grad: 5.00 JAVI Cont.VTI: 2.11 LVOT LVOT Pk Jamaal: 0.97 LVOT Mn Jamaal: 0.64 LVOT VTI: 0.21 LVOT Pk Grad: 4.00 LVOT Mn Grad: 2.00 LVOT Diam: 2.00 LVOT Area: 3.14 Diastolic Function MV Pk E: 0.70 MV Pk A: 0.66 E/A: 1.10 E'Medial: 9.68 E/E' Med: 7.30 E' Laterial: 11.20 E/E' Lat: 6.30 Right Ventricle TAPSE (mm): 28.40 TVS' Jamaal: 13.60 Tricuspid Valve TR Pk Jamaal: 2.52 TR Pk Grad: 25.00 RA Press: 3.00 RVSP: 28.00 Great Vessels Aorta Sinus of Valsalva: 3.56 2.0-3.[address] Ridge: 2.55 1.7-3.4 cm Updated in Other Vendor System with Status of Final Avel Guerrero MD electronically signed on 12/18/2024 3:39:11 PM with status of Final
== END ==
LOC: HO.CARD 12:46
PROVIDERS: PCP Internal Medicine
DX: R06.00 Dyspnea, unspecified (principal)
CPT/HCPCS: 93306

== ENCOUNTER → 2024-12-18 12:48 | Outpatient (BNV) | payer MEDICARE, SELFPAY | PROVIDERS: PCP Internal Medicine; Visit Provider Internal Medicine Cardiovascular Disease | DX: I51.89 Other ill-defined heart diseases (principal); R06.00 Dyspnea, unspecified | CPT/HCPCS: 93306 ==

== ENCOUNTER 2024-12-28 12:50 | Outpatient (AMB) | payer MEDICARE, SELFPAY ==
[2024-12-28 12:59] VITALS: BP 110/70; PULSE 68; BMI 32.7
--- NOTE | 2024-12-28 12:59 | MHC.OFFVIS ---
Vital Signs 12/28/24 12:59 Height 5 ft 3 in Weight 184 lb 11.958 oz BMI 32.7 BP 110/70 Blood Pressure Location Lt brachial Position Sitting Pulse 68 Pulse Source Pulse Oximeter Intake Visit Reasons: f/up-after testing echo, mibi Intake Note: f/up-echo, mibi cancel by pt. 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 Required: No Accompanied by: Self / Same As Patient Allergies No Known Allergies Allergy (Verified 03/30/24 09:42) Medication List - Last Reconciled 12/28/24 by Zeferino Chapman NP acetaminophen 650 mg PO Q6H PRN albuterol sulfate 2.5 mg (3 mL) inhalation Q2H PRN albuterol sulfate 90 mcg/actuation 2 inhalations inhalation Q6H PRN 30 days doxycycline monohydrate 100 mg PO BID 14 days suvghxvnpft-eyfqazgcy-nwdylwer 200-62.5-25 mcg (Trelegy Ellipta) 1 inh inhalation DAILY 30 days furosemide 40 mg PO DAILY hydroxyzine HCl 50 mg PO BID PRN ibuprofen 600 mg PO BID PRN ipratropium-albuterol 0.5 mg-3 mg(2.5 mg base)/3 mL 3 mL inhalation RQ4H WHILE AWAKE methadone 60 mg PO DAILY metoprolol tartrate 25 mg PO BID 90 days sacubitril-valsartan 24-26 mg (Entresto) 1 tab PO BID sertraline (Zoloft) 25 mg PO DAILY varenicline tartrate (Chantix Starting Month Box) PO PER PKG DIR varenicline tartrate (Chantix Continuing Month Box) 1 mg PO BID 28 days HPI Comments Details: This is a 69-year-old female patient coming in for a follow-up visit. Patient with a history of COPD, sleep apnea, former smoker, and nonischemic cardiomyopathy. Back in June of 2023 patient was noted to have a low EF with mild global hypokinesis following which patient underwent a cardiac catheterization that showed no significant coronary artery disease. Following this patient had another echo that showed an EF lower at 20-25%. At her last office visit, patient had reported some shortness of breath for which patient underwent a repeat echo. Patient also was supposed to have a stress test but patient states that she was unable to complete this due to a fall. Today, patient is reporting feeling well overall and denies any cardiac symptoms of exertional chest pain, shortness of breath, palpitations, dizziness, orthopnea, PND, leg edema, presyncope or syncope. Patient states she has been taking all her medications and has been tolerating them well. [facility] Medical History Postmenopausal Personal history of nicotine dependence Nonischemic cardiomyopathy Pneumonia Dyspnea Chronic cough Surgical History History of carpal tunnel surgery of left wrist S/P cardiac catheterization History of knee surgery Family History Other HTN (hypertension) Social History [facility] Alcohol intake: never Patient Tobacco Use Status: Former Tobacco user Tobacco use type: Cigarette Years Smoked: (onset 16yo, 1ppd x 50yrs, 50pyh quit 2021 - now vaping) e-Cigarette/Vaping Use: Currently Using Second Hand Smoke Exposure: No service: No Current occupational status: employed Cognitive needs: No Hearing needs: No Vision needs: Yes Review of Systems Const Denies chills, Denies fatigue, Denies fever(s), Denies frequent falls, Denies weakness, Denies weight gain and Denies weight loss ENT Denies dizziness Card Denies chest pain, Denies leg edema, Denies lightheadedness, Denies palpitations, Denies dyspnea and Denies dyspnea on exertion Resp Denies cough, Denies dyspnea and Denies dyspnea on exertion GI Denies hematochezia Musc Denies abnormal gait, Denies muscle weakness, Denies numbness, Denies radiating pain into limb and Denies tingling Neuro Denies abnormal gait, Denies dizziness, Denies frequent falls, Denies numbness, Denies tingling and Denies weakness Endo Denies fatigue and Denies palpitations Physical Exam Vital Signs: Last Vital Signs Pulse 68 12/28/24 12:59 BP 110/70 12/28/24 12:59 BMI result Body Mass Index 32.7 Const General: cooperative, healthy appearing, comfortable and no acute distress Orientation/consciousness: patient oriented x3 HEENT Head: Yes normal to inspection Neck Neck: Yes normal visual inspection, Yes trachea midline and Yes supple Chest Chest palpation & inspection: normal inspection of the chest Resp Effort & Inspection: normal respiratory effort Auscultation: clear to auscultation bilaterally, no crackles, no rales, no rhonchi and no wheezes Cardio Jugular venous distension: no JVD Palpation: normal PMI Rate: regular rate Rhythm: regular rhythm Heart sounds: S1 normal heart sound present, S2 normal heart sound present, no click, no gallops, no murmurs and no rubs Peripheral pulses: Peripheral pulses 2+ throughout GI Inspection: Yes normal to inspection Palpation (GI): Soft to palpation Auscultation: normal bowel sounds Skin General skin exam: no rashes or lesions noted Neuro General: patient oriented x3 Extrem General: Yes normal to inspection, No no pedal edema and No calf tenderness Psych Appearance: grossly normal Mental Status: mental status grossly normal Speech and movement: Normal speech and movement present Assessment & Plan Assessment & Plan (1) Nonischemic cardiomyopathy: Code(s): I42.8 - Other cardiomyopathies Category: Medical Plan: 07/01/2023-patient had an echo study at [facility] that showed an EF between 20-25%, prior EF of 43%. 12/18/2024-patient's most recent echo showed an improved LV systolic function with the ejection fraction normalized at 65-70% with a grade 1 diastolic dysfunction. Clinically euvolemic and stable. Continue Lasix, metoprolol, and Entresto therapy. We will monitor labs periodically. Reviewed signs and symptoms to watch for with heart failure. Continue with low-salt diet. We will repeat an echo in 1 year. (2) S/P cardiac catheterization: Code(s): Z98.890 - Other specified postprocedural states Category: Surgical Plan: Following an echo that showed mild global hypokinesis, patient underwent a cardiac catheterization on 07/01/2023 that showed no significant coronary artery disease. Last LDL from a year ago was elevated at 131. We will repeat lipid profile with a goal of LDL less than 100. (3) Obstructive sleep apnea: Code(s): G47.33 - Obstructive sleep apnea (adult) (pediatric) Category: Medical Plan: Continue CPAP therapy. Advised heart healthy diet, regular exercise, med compliance, and management of vascular risk factors. We will follow up with the patient in 1 year, sooner if needed. In the interim, patient will call the office with any concerns or change in symptoms. This note was generated using voice recognition software. While every effort has been made to ensure accuracy and proper career law clerk, there may be occasional errors that could affect the content or meaning of the described symptoms. Orders: Orders Basic Metabolic Panel Today I42.8 - Other cardiomyopathies Lipid Panel Today I42.8 - Other cardiomyopathies CA echo transthoracic complete 1 Year I42.8 - Other cardiomyopathies Coding Level of Care Code Est Pt Level 4 (40310) Complex EM visit Add On G2211 Diagnoses Nonischemic cardiomyopathy I42.8 S/P cardiac catheterization Z98.890 Obstructive sleep apnea G47.33 Time Spent (min) 31 Comment Time spent in reviewing the chart, test results, assessment, counseling and documentation.
== END 2024-12-28 13:16 | disposition home or self-care (01) ==
LOC: HO.HCS 12:50
PROVIDERS: PCP Internal Medicine
DX: I42.8 Other cardiomyopathies (principal); Z98.890 Other specified postprocedural states; G47.33 Obstructive sleep apnea (adult) (pediatric)
CPT/HCPCS: 99214; G2211

== ENCOUNTER → 2024-12-28 12:50 | Outpatient (BNVA) | payer MEDICARE, SELFPAY | PROVIDERS: PCP Internal Medicine | DX: I42.8 Other cardiomyopathies (principal); G47.33 Obstructive sleep apnea (adult) (pediatric); Z98.890 Other specified postprocedural states | CPT/HCPCS: 99212 ==